=== PATIENT | female | born 1985 | race Caucasian/White ===

== ENCOUNTER 2016-05-22 23:53 | Inpatient (IN) | payer MEDICAID ==
[~2016-05-22] VITALS: Ht 154.9 cm; Wt 59.9 kg
[~2016-05-22 23:53] MED LIST: ACYCLOVIR400 MG PO; ADALAT CC60 MG PO; ATORVASTATIN CA10 MG ORAL; BACTRIM-DS1 EA PO; CEPHALEXIN500 MG PO; CLINDAMYCIN HC150 MG PO; IBUPROFEN600 MG ORAL; IBUPROFEN800 MG PO; KEFLEX500 MG ORAL; KENALOG 0.025%15 GM APPLIC; LABETALOL HCL300 MG PO; LEVAQUIN750 MG ORAL; LISINOPRIL10 MG ORAL; LISINOPRIL20 MG ORAL; NORCO 5-325 TA1 EACH ORAL; NORCO 5-325 TA1 EACH PO; PHENAZOPYRIDIN100 MG ORAL; PRILOSEC20 MG ORAL; ULTRAM50 MG PO; ZITHROMAX250 MG ORAL; [UNRECOGNIZED DRUG - REMARK]
[2016-05-23] VITALS (8 sets, daily range): BP systolic 112–135; BP diastolic 73–86
[2016-05-23] MEDS ORDERED: Ertapenem 1 GM in NS 55 ML IV ONE ×2 (01:15→03:45)
[2016-05-23 01:32] LABS: APPEARANCE,URINE CLEAR; KETONES,URINE NEGATIVE (NEGATIVE); LEUKOCYTE ESTERASE ,URINE NEGATIVE (NEGATIVE); MEAN CORPUSCULAR HEMOGLOBIN 28.7 PG (27.0-31.0); MEAN CORPUSCULAR VOLUME 84 FL (80-99); MEAN PLATELET VOLUME 6.1 FL (6.5-10.1); NITRITE,URINE NEGATIVE (NEGATIVE); PH,URINE 5 (4.5-8.0); PLATELET COUNT 209 K/UL (150-450); PROTEIN,URINE 3+ (NEGATIVE); RED BLOOD COUNT 3.29 M/UL (4.20-5.40); RED CELL DISTRIBUTION WIDTH 12.3 % (11.6-14.8); UROBILINOGEN,URINE NORMAL MG/DL (0.0-1.0); WHITE BLOOD COUNT 10.3 K/UL (4.8-10.8)
[2016-05-23 01:39] LABS: BACTERIA,URINE FEW /HPF; SQUAMOUS EPITHELIAL CELL,UR MODERATE /LPF (NONE/OCC)
[2016-05-23 01:45] LABS: ALANINE AMINOTRANSFERASE 20 U/L (3-33); ANION GAP 15 (5-15); ASPARTATE AMINO TRANSFERASE 30 U/L (5-40); CARBON DIOXIDE 21 mEQ/L (20-30); CHLORIDE 101 mEQ/L (98-107); GLOMERULAR FILTRATION RATE > 60 mL/min (>60); HEMOLYSIS 2; POTASSIUM 3.3 mEQ/L (3.4-4.9); SODIUM 137 mEQ/L (135-145); TOTAL PROTEIN 5.8 g/dL (6.6-8.7)
[2016-05-23] MEDS ORDERED: Levofloxacin 500mg tab ORAL ONE (02:45)
[2016-05-23] MEDS ORDERED: Acetaminophen 500mg (ES) tab ORAL ONE (02:45)
--- NOTE | 2016-05-23 02:45 | Emergency Room Report ---
History of Present Illness General Chief Complaint: Back Pain-No Injury Source: Patient Present Illness HPI This is a 30-year-old female with a history of urinary tract infection. 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 She has no kidney abnormality. She presents with chief complaint of fever chills and back pain. Onset yesterday. Denies any cough or congestion. Has mild sore throat. Does have mild increasing urination. No diarrhea. No abdominal pain. Allergies: Coded Allergies: PENICILLINS (Verified Allergy, Rash, 01/19/12) Patient History Past Medical History: see triage record, old chart reviewed Past Surgical History: other Pertinent Family History: none Social History: Denies: smoking Last Menstrual Period: Apr Now: No Immunizations: other Reviewed Nursing Documentation: PMH: Agreed, PSxH: Agreed Nursing Documentation-PMH Hx Hypertension: Yes Hx Pacemaker: No Hx Asthma: No Hx COPD: No Hx Diabetes: No Hx Cancer: No Hx Gastrointestinal Problems: Yes - KIDNEY BIOPSY Apr Hx Dialysis: No - UTI in 2001 Hx Neurological Problems: No Hx Cerebrovascular Accident: No Hx Seizures: No Review of Systems Constitutional: Reports: fever Eye: Denies: blurred vision, eye pain ENT: Denies: ear pain, nose congestion, throat swelling Respiratory: Denies: cough, shortness of breath Cardiovascular: Denies: chest pain, palpitations Gastrointestinal: Denies: abdominal pain, diarrhea, nausea, vomiting Musculoskeletal: Denies: back pain, joint pain Skin: Denies: rash Neurological: Denies: headache, numbness Endocrine: Denies: increased thirst, increased urine Hematologic/Lymphatic: Denies: easy bruising All Other Systems: negative except mentioned in HPI Physical Exam Vital Signs Date Time Temp Pulse Resp B/P Pulse Ox O2 Delivery O2 Flow Rate FiO2 05/23/16 00:30 100.0 128 20 132/80 100 Room Air vitals with fever and tachycardia Sp02 EP Interpretation: reviewed, normal General Appearance: well appearing, no apparent distress, alert Head: normocephalic, atraumatic Eyes: bilateral eye EOMI, bilateral eye PERRL ENT: hearing grossly normal, normal pharynx Neck: full range of motion, supple, no meningismus Respiratory: chest non-tender, lungs clear, normal breath sounds Cardiovascular #1: regular rate, rhythm, no murmur Gastrointestinal: normal bowel sounds, non tender, no mass, no organomegaly, no bruit, non-distended Musculoskeletal: back normal, gait/station normal, normal range of motion Psychiatric: mood/affect normal Skin: warm/dry Medical Decision Making Diagnostic Impression: Primary Impression: Fever Qualified Codes: R50.9 - Fever, unspecified Additional Impressions: Anemia Qualified Codes: D64.9 - Anemia, unspecified Proteinuria Sepsis Qualified Codes: A41.9 - Sepsis, unspecified organism UTI (urinary tract infection) Qualified Codes: N30.00 - Acute cystitis without hematuria ER Course Patient presents with fever and chills. Differential include sepsis, pneumonia , pyelonephritis, influenza to name a few. Urinalysis unremarkable she does have small amount of bacteria. Labs unremarkable. No evidence of pneumonia, acute abdomen, strep to name a few. CT scan unremarkable. She grew out ESBL Escherichia coli in the past. It is resistant to Keflex, cefepime, Rocephin, Ceftazidime, and Bactrim. it is sensitive to the fluoroquinolones, Invanz, gentamicin, imipenem, and Zosyn. She has allergy to penicillin. Unknown reaction. Was told by her mom that she is allergic. Is intermediate to Macrobid. Initially, gave patient Levaquin anticipating that she may be discharged home. I also held off on and sent because of her diagnosis of glomerulonephritis. Patient continued to be febrile and tachycardic despite Tylenol and IV fluids. I went ahead and gave patient a dose of Toradol. Also started on ertapenem. Because of the persistent fever and tachycardia and recent renal biopsy, I will admit the patient. She is unstable for transfer because of her tachycardia. Patient also has left-sided back pain. Her biopsy is on her left kidney.no obvious leonardo jam this or abscess collection on CT scan. Laboratory Tests Test 05/23/16 01:18 White Blood Count 10.3 K/UL (4.8-10.8) Red Blood Count 3.29 M/UL (4.20-5.40) L Hemoglobin 9.4 G/DL (12.0-16.0) L Hematocrit 27.7 % (37.0-47.0) L Mean Corpuscular Volume 84 FL (80-99) Mean Corpuscular Hemoglobin 28.7 PG (27.0-31.0) Mean Corpuscular Hemoglobin Concent 34.0 G/DL (32.0-36.0) Red Cell Distribution Width 12.3 % (11.6-14.8) Platelet Count 209 K/UL (150-450) Mean Platelet Volume 6.1 FL (6.5-10.1) L Neutrophils (%) (Auto) % (45.0-75.0) Lymphocytes (%) (Auto) % (20.0-45.0) Monocytes (%) (Auto) % (1.0-10.0) Eosinophils (%) (Auto) % (0.0-3.0) Basophils (%) (Auto) % (0.0-2.0) Urine Color Pale yellow Urine Appearance Clear Urine pH 5 (4.5-8.0) Urine Specific [place] 1.005 (1.005-1.035) Urine Protein 3+ (NEGATIVE) H Urine Glucose (UA) Negative (NEGATIVE) Urine Ketones Negative (NEGATIVE) Urine Occult Blood 5+ (NEGATIVE) H Urine Nitrite Negative (NEGATIVE) Urine Bilirubin Negative (NEGATIVE) Urine Urobilinogen Normal MG/DL (0.0-1.0) Urine Leukocyte Esterase Negative (NEGATIVE) Urine RBC 10-15 /HPF (0 - 2) H Urine WBC 2-4 /HPF (0 - 2) Urine Squamous Epithelial Cells Moderate /LPF (NONE/OCC) H Urine Bacteria Few /HPF (NONE) Urine HCG, Qualitative Negative Sodium Level 137 mEQ/L (135-145) Potassium Level 3.3 mEQ/L (3.4-4.9) L Chloride Level 101 mEQ/L (98-107) Carbon Dioxide Level 21 mEQ/L (20-30) Anion Gap 15 (5-15) Blood Urea Nitrogen 19 mg/dL (7-23) Creatinine 1.0 mg/dL (0.5-0.9) H Estimat Glomerular Filtration Rate > 60 mL/min (>60) Glucose Level 151 mg/dL (74-106) H Lactic Acid Level 1.10 mmol/L (0.66-2.22) Calcium Level 8.0 mg/dL (8.6-10.2) L Total Bilirubin 0.2 mg/dL (0.0-1.2) Aspartate Amino Transf (AST/SGOT) 30 U/L (5-40) Alanine Aminotransferase (ALT/SGPT) 20 U/L (3-33) Alkaline Phosphatase 94 U/L (35-104) Total Protein 5.8 g/dL (6.6-8.7) L Albumin 2.9 g/dL (3.5-5.2) L Globulin 2.9 g/dL Albumin/Globulin Ratio 1.0 (1.0-2.7) Lab Results Impression labs unremarkable EKG Diagnostic Results Rate: normal, tachycardiac Rhythm: NSR ST Segments: no acute changes Rhythm Strip Diag. Results EP Interpretation: yes Rate: 110 Rhythm: NSR, no PVC's, no ectopy Last Vital Signs Date Time Temp Pulse Resp B/P Pulse Ox O2 Delivery O2 Flow Rate FiO2 05/23/16 00:40 100.2 113 14 135/84 98 Room Air Status: improved Disposition: ADMITTED INPATIENT Condition: Serious Referrals: [facility],REFERR[facility] (PCP) GUILLERMINA PENA M.D. May 23, 2016 02:45
[2016-05-23] MEDS ORDERED: Ketorolac 30mg Inj IV ONE (03:45)
[2016-05-23] MEDS ORDERED: Ertapenem (INVanz) Inj ONE (03:46)
[2016-05-23] MEDS ORDERED: LISINOPRIL20 MG ORAL (06:02)
[2016-05-23] MEDS ORDERED: Nitroglycerin Subl 0.4mg tab (Bottle Of 25) SL PRN (08:30)
[2016-05-23] MEDS ORDERED: Morphine Sulfate 2mg/ml Inj IVP PRN (08:30)
[2016-05-23] MEDS ORDERED: DuoNeb 0.5-3(2.5)mg/3ml neb HHN PRN (08:30)
[2016-05-23] MEDS ORDERED: Miralax 17gm pkt ORAL PRN (08:30)
--- NOTE | 2016-05-23 09:34 | Diagnostic Imaging Report ---
Indication: Abdominal pain Technique: Continuous helical transaxial imaging of the abdomen and pelvis was obtained from the lung bases to the pubic symphysis. No intravenous contrast was administered. Coronal 2-D reformats were also obtained. Total Dose length Product (DLP): [address] Dose Index Volume (CTDIvol): 14 mGy Comparison: none Findings: There is posterior basilar atelectasis present. Urinary bladder is mildly distended. There is an intrauterine device present. There is no hydronephrosis or nephrolithiasis demonstrated. Gallbladder is contracted. The left ovary is prominent. There is a suggestion of a low-density mass or cyst in the left ovary not well characterized on this examination. Small mesenteric nodes are seen in the right lower quadrant. Appendix is normal in appearance. Impression: Suggestion of left ovarian mass versus cyst. This is not characterized well on this examination. IUD Small focal hernia containing fat Posterior basilar atelectasis [facility] has communicated the preliminary results to the Emergency Department. Their findings are largely concordant with this report. The CT scanner at [facility] is accredited by the [employer] and the scans are performed using protocols designed to limit radiation exposure to as low as reasonably achievable to attain images of sufficient resolution adequate for diagnostic evaluation.
[2016-05-23] MEDS: Norco 5mg/325mg tab ORAL PRN ×2 (10:37→17:33)
[2016-05-23] MEDS: Heparin 5000 units/ml inj SUBQ SCH ×2 (10:41→21:00)
[2016-05-23] MEDS: Cefepime HCl 2 GM in D5W 110 ML IV SCH ×2 (11:13→21:29)
[2016-05-23] MEDS ORDERED: Vancomycin 1 GM in D5W 275 ML IVPB ONE (12:00)
--- NOTE | 2016-05-23 12:11 | Diagnostic Imaging Report ---
Indication: Dyspnea Comparison: 08/31/15 A single view chest radiograph was obtained. Findings: Cardiomediastinal appearance is within normal limits for age. Pulmonary vascularity is appropriate. The diaphragmatic contour is smooth and costophrenic angles are sharp. No pleural effusions are identified. The bones are unremarkable. Impression: No acute findings
[2016-05-23] MEDS: Lisinopril 20mg tab ORAL SCH ×2 (12:20→21:29)
[2016-05-23 17:09] LABS: INR 1.1 (0.9-1.1); PROTHROMBIN TIME 11.5 SEC (9.30-11.50)
[2016-05-23 17:48] LABS: RETICULOCYTE COUNT 1.2 % (0.0-2.0)
[2016-05-23 18:08] LABS: BAND NEUTROPHILS % (MANUAL) 9 % (0-8); LYMPHOCYTES % (MANUAL) 11 % (20-45); NEUTROPHILS % (MANUAL) 63 % (45-75); TOTAL CELLS COUNTED 100
[2016-05-23 18:10] LABS: BASOPHILS % (MANUAL) 0 % (0-2); EOSINOPHILS % (MANUAL) 0 % (0-3); PLATELET ESTIMATE ADEQUATE; PLATELET MORPHOLOGY NORMAL
[2016-05-23 18:23] LABS: PATH BLOOD SMEAR/OMC SENT TO PATHOLOGIST
--- NOTE | 2016-05-23 21:43 | History and Physical ---
History of Present Illness General Date patient seen: May 23, 2016 Reason for Hospitalization: Back Pain-No Injury possible kidney disease Present Illness HPI Patient is a 31-year-old female with a history of urinary tract infection with E. 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 She has no kidney abnormality. She presents with chief complaint of fever chills and back pain. Denies all other significant past medical history. Denies alcohol and illicit substance abuse, cannot recall any recent occupation exposures to chemicals or toxins and also denies taking nephrotoxic agents. Patient is being admitted and pharmaceutical worker has been requested to evaluate her serious medical condition. Allergies: Coded Allergies: PENICILLINS (Verified Allergy, Unknown, Rash, 05/24/16) 05/24/16: tolerates cefepime/ceftriaxone Medication History Scheduled Atorvastatin Calcium* (Lipitor*), 10 MG ORAL BEDTIME, (Reported) Hydrocodone Bit/Acetaminophen 5-325* ([place] 5-325*), 1 TAB PO Q6H Labetalol Hcl* (Normodyne*), 400 MG PO Q12H, (Reported) Lisinopril (Lisinopril*), 20 MG ORAL BID, (Reported) Nifedipine Er* (Adalat Cc*), 60 MG PO DAILY Miscellaneous Medications [High choles pill], (Reported) Patient History Healthcare decision maker pt alert and oriented Resuscitation status Full Code Advanced Directive on File Past Medical/Surgical History Past Medical/Surgical History: (1) chest pain (2) hypertension - out of control (3) medication non-compliance (4) Upper respiratory infection (5) Viral syndrome (6) Upper respiratory infection (7) Headache (8) Chest wall pain (9) Dental abscess (10) Dysfunctional uterine bleeding (11) UTI (urinary tract infection) Review of Systems Constitutional: Reports: fever, malaise, sweats, weakness Genitourinary: Reports: dysuria, frequency, hematuria, pain, urgency Neurological: Reports: headache Physical Exam General Appearance: no apparent distress, lethargic Lines, tubes and drains: peripheral HEENT: normocephalic, atraumatic, anicteric, PERRL Neck: non-tender, normal alignment, supple, normal inspection Respiratory/Chest: chest wall non-tender, lungs clear, normal breath sounds, no respiratory distress Breasts: no masses Cardiovascular/Chest: normal peripheral pulses, normal rate, regular rhythm Abdomen: normal bowel sounds, non tender, soft, no organomegaly Genitourinary/Rectal: normal genital exam, normal rectal exam Extremities: normal range of motion, non-tender Skin Exam: normal pigmentation, warm/dry Neurologic: tire duster II-XII grossly normal, no motor/sensory deficits Last 24 Hour Vital Signs Date Time Temp Pulse Resp B/P Pulse Ox O2 Delivery O2 Flow Rate FiO2 05/23/16 21:29 126/75 05/23/16 20:14 108 18 Room Air 21 05/23/16 18:32 97.9 05/23/16 12:20 126/75 05/23/16 12:00 120 05/23/16 11:22 97.9 100 17 126/75 100 Room Air 05/23/16 08:00 118 05/23/16 07:36 98.8 122 18 118/76 98 Room Air 05/23/16 06:30 98.4 118 18 112/76 99 Room Air 05/23/16 06:14 126 21 117/78 100 Room Air 05/23/16 04:40 99.4 117 21 117/78 99 Room Air 05/23/16 03:42 100.9 05/23/16 02:40 100.9 120 16 123/86 100 Room Air 05/23/16 00:40 100.2 113 14 135/84 98 Room Air 05/23/16 00:30 100.0 128 20 132/80 100 Room Air Intake and Output 05/22/16 05/23/16 19:00 07:00 Intake Total 2850 ml Balance 2850 ml IV Total 2850 ml # Voids 2 Laboratory Tests Test 05/23/16 01:18 05/23/16 16:10 White Blood Count 10.3 K/UL (4.8-10.8) Red Blood Count 3.29 M/UL (4.20-5.40) L Hemoglobin 9.4 G/DL (12.0-16.0) L Hematocrit 27.7 % (37.0-47.0) L Mean Corpuscular Volume 84 FL (80-99) Mean Corpuscular Hemoglobin 28.7 PG (27.0-31.0) Mean Corpuscular Hemoglobin Concent 34.0 G/DL (32.0-36.0) Red Cell Distribution Width 12.3 % (11.6-14.8) Platelet Count 209 K/UL (150-450) Mean Platelet Volume 6.1 FL (6.5-10.1) L Neutrophils (%) (Auto) % (45.0-75.0) Lymphocytes (%) (Auto) % (20.0-45.0) Monocytes (%) (Auto) % (1.0-10.0) Eosinophils (%) (Auto) % (0.0-3.0) Basophils (%) (Auto) % (0.0-2.0) Differential Total Cells Counted 100 Neutrophils % (Manual) 63 % (45-75) Lymphocytes % (Manual) 11 % (20-45) L Monocytes % (Manual) 17 % (1-10) H Eosinophils % (Manual) 0 % (0-3) Basophils % (Manual) 0 % (0-2) Band Neutrophils 9 % (0-8) H Platelet Estimate Adequate Platelet Morphology Normal Red Blood Cell Morphology Normal Anisocytosis Urine Color Pale yellow Urine Appearance Clear Urine pH 5 (4.5-8.0) Urine Specific [place] 1.005 (1.005-1.035) Urine Protein 3+ (NEGATIVE) H Urine Glucose (UA) Negative (NEGATIVE) Urine Ketones Negative (NEGATIVE) Urine Occult Blood 5+ (NEGATIVE) H Urine Nitrite Negative (NEGATIVE) Urine Bilirubin Negative (NEGATIVE) Urine Urobilinogen Normal MG/DL (0.0-1.0) Urine Leukocyte Esterase Negative (NEGATIVE) Urine RBC 10-15 /HPF (0 - 2) H Urine WBC 2-4 /HPF (0 - 2) Urine Squamous Epithelial Cells Moderate /LPF (NONE/OCC) H Urine Bacteria Few /HPF (NONE) Urine HCG, Qualitative Negative Sodium Level 137 mEQ/L (135-145) Potassium Level 3.3 mEQ/L (3.4-4.9) L Chloride Level 101 mEQ/L (98-107) Carbon Dioxide Level 21 mEQ/L (20-30) Anion Gap 15 (5-15) Blood Urea Nitrogen 19 mg/dL (7-23) Creatinine 1.0 mg/dL (0.5-0.9) H Estimat Glomerular Filtration Rate > 60 mL/min (>60) Glucose Level 151 mg/dL (74-106) H Lactic Acid Level 1.10 mmol/L (0.66-2.22) Calcium Level 8.0 mg/dL (8.6-10.2) L Total Bilirubin 0.2 mg/dL (0.0-1.2) Aspartate Amino Transf (AST/SGOT) 30 U/L (5-40) Alanine Aminotransferase (ALT/SGPT) 20 U/L (3-33) Alkaline Phosphatase 94 U/L (35-104) Total Protein 5.8 g/dL (6.6-8.7) L Albumin 2.9 g/dL (3.5-5.2) L Globulin 2.9 g/dL Albumin/Globulin Ratio 1.0 (1.0-2.7) Erythrocyte Sedimentation Rate 77 MM/HR (0-20) H Reticulocyte Count 1.2 % (0.0-2.0) Prothrombin Time 11.5 SEC (9.30-11.50) Prothromb Time International Ratio 1.1 (0.9-1.1) Activated Partial Thromboplast Time 32 SEC (23-33) Iron Level 13 ug/dL (37-145) L Total Iron Binding Capacity 262 ug/dL (250-400) Percent Iron Saturation 5 % (15-50) L Unsaturated Iron Binding 249 ug/dL (112-346) Lactate Dehydrogenase 214 U/L (135-230) Carcinoembryonic Antigen 0.5 ng/mL Vitamin B12 Level 533 pg/mL (211-946) Folate Pending Microbiology Date/Time Source Procedure Growth Status 05/23/16 03:31 Nasal Nares Influenza Types A,B Antigen (DWAYNE) - Final Complete Height (Feet): 5 Height (Inches): 2.00 Weight (Pounds): 132 Medications Current Medications Medications (Trade) Dose Ordered Sig/Jolene Route PRN Reason Start Time Stop Time Status Last Admin Dose Admin Acetaminophen (Tylenol) 650 mg Q4H PRN ORAL fever 05/23/16 08:30 06/22/16 08:29 Acetaminophen/ Hydrocodone Bitart ([place] 5/325) 1 tab Q6H PRN ORAL Breakthrough Pain 05/23/16 08:30 05/30/16 08:29 05/23/16 17:33 Albuterol/ Ipratropium 3 ml 3 ml Q4H PRN HHN Shortness of Breath 05/23/16 08:30 05/28/16 08:29 Atorvastatin Calcium (Lipitor) 10 mg BEDTIME ORAL 05/23/16 21:00 06/22/16 20:59 05/23/16 21:29 Cefepime HCl/ Dextrose (Maxipime/D5W) 110 ml @ 220 mls/hr EVERY 12 HOURS IV 05/23/16 11:00 05/30/16 10:59 05/23/16 21:29 Heparin Sodium (Porcine) (Heparin 5000 units/ml) 5,000 units EVERY 12 HOURS SUBQ 05/23/16 09:00 06/22/16 08:59 05/23/16 10:41 Lisinopril (Prinivil) 20 mg Q12HR ORAL 05/23/16 12:00 06/22/16 11:59 05/23/16 21:29 Morphine Sulfate (Morphine Sulfate) 2 mg Q4H PRN IVP Moderate Pain (Pain Scale 4-6) 05/23/16 08:30 05/30/16 08:29 Nitroglycerin (Ntg) 0.4 mg Q5M PRN SL Prn Chest Pain 05/23/16 08:30 06/22/16 08:29 Ondansetron HCl (Zofran) 4 mg Q6H PRN IVP Nausea & Vomiting 05/23/16 08:30 06/22/16 08:29 Polyethylene Glycol (Miralax) 17 gm DAILYPRN PRN ORAL Constipation 05/23/16 08:30 06/22/16 08:29 Temazepam (Restoril) 15 mg HSPRN PRN ORAL Insomnia 05/23/16 08:30 05/30/16 08:29 Vancomycin HCl 1 ea 1 ea DAILY PRN MISC PER RX PROTOCOL 05/23/16 09:30 06/22/16 09:29 Vancomycin HCl/ Dextrose (Vancomycin/D5W) 275 ml @ 183.708 mls/hr Q12HR@0000,1200 IVPB 05/24/16 00:00 05/29/16 00:00 Assessment/Plan Status: stable, tolerating diet ANAI SANCHEZ May 23, 2016 21:43
[2016-05-23 23:23] LABS: APPEARANCE,URINE CLEAR; KETONES,URINE NEGATIVE (NEGATIVE); LEUKOCYTE ESTERASE ,URINE 1+ (NEGATIVE); NITRITE,URINE NEGATIVE (NEGATIVE); PH,URINE 5 (4.5-8.0); PROTEIN,URINE 4+ (NEGATIVE); UROBILINOGEN,URINE NORMAL MG/DL (0.0-1.0)
--- NOTE | 2016-05-23 23:45 | Consultation ---
Consult Note Consult Note [id number] CESIA AMBRIZ M.D. May 23, 2016 23:45
[2016-05-24 00:01] LABS: AMORPHOUS SEDIMENT,UR FEW /LPF; BACTERIA,URINE MODERATE /HPF; COARSE GRANULAR CASTS,URINE 0-2 /LPF; RBC,URINE 60-80 /HPF (0 - 2); SQUAMOUS EPITHELIAL CELL,UR MANY /LPF (NONE/OCC); WHITE BLOOD CELL CASTS, URINE 0-2 /LPF
[2016-05-24 00:31] VITALS: BP 111/77
[2016-05-24] MEDS: Vancomycin 750mg/D5W 275ml IVPB SCH ×4 (00:33→12:23)
--- NOTE | 2016-05-24 03:08 | Consultation ---
DATE OF CONSULTATION: INFECTIOUS DISEASE CONSULTATION CONSULTING PHYSICIAN: Timoteo Awad M.D. REQUESTING PHYSICIAN: Teresa Tovar M.D. REASON FOR CONSULTATION: Evaluation of the patient for severe lower urinary tract infection and antibiotic management. HISTORY OF PRESENT ILLNESS: The patient is a 30-year-old female, who was admitted to this medical center due to frequent urination and dysuria. The patient has been started on IV antibiotics. An Infectious Disease consultation has been requested for further evaluation of the patient and antibiotic management. PAST MEDICAL HISTORY: Significant for hypertension, nephritis. MEDICATIONS: Intravenous vancomycin and cefepime. ALLERGIES: Penicillin. SOCIAL HISTORY: No history of alcohol or drug abuse. FAMILY HISTORY: Noncontributory. REVIEW OF SYSTEMS: A 10-point review was done and except what is mentioned has been negative. PHYSICAL EXAMINATION: VITAL SIGNS: Temperature 97.8 degrees, blood pressure 116/68, pulse 86, respiratory rate 18, and T-max 100.9 degrees. HEENT: Mild pale conjunctivae. No icterus. NECK: No lymphadenopathy. CHEST: Coarse breathing sounds. HEART: S1 and S2. ABDOMEN: Soft. EXTREMITIES: No cyanosis. NEUROLOGIC: Awake. LABORATORY AND DIAGNOSTIC DATA: White blood cell 10, hemoglobin 9.4, and platelets 209,000. UA showed 10 to 15 white blood cells, 2 to 4 red blood cells, and proteinuria. BUN 19 and creatinine . AST, ALT, and alkaline phosphatase are within normal range. Chest x-ray is unremarkable. CT scan of the abdomen suggest left ovarian mass versus cyst. ASSESSMENT: The patient is a 30-year-old female with multiple medical problems, who has been admitted to this medical center with fever, source is not clear, possible urinary tract infection with history of dysuria. PLAN: 1. We will continue the patient on current antibiotics, vancomycin and cefepime. 2. Monitor counts. 3. Monitor CBC. 4. Monitor BMP. 5. Based on the patient's clinical course and labs, we will do further recommendations. Thank you Dr. Tovar for allowing me to participate in the care of this patient. I will follow the patient with you during this hospitalization. Timoteo Awad M.D. DR: CARLIN JOB#: [id number] CC:
[2016-05-24 04:10] VITALS: BP 113/78
[2016-05-24 08:11] VITALS: BP 132/91
[2016-05-24 08:24] LABS: BASOPHILS % (AUTO) 2.4 % (0.0-2.0); EOSINOPHILS % (AUTO) 0.3 % (0.0-3.0); LYMPHOCYTES % (AUTO) 13.4 % (20.0-45.0); MEAN CORPUSCULAR HEMOGLOBIN 28.9 PG (27.0-31.0); MEAN CORPUSCULAR HGB CONC 34.1 G/DL (32.0-36.0); MEAN CORPUSCULAR VOLUME 85 FL (80-99); MONOCYTES % (AUTO) 18.9 % (1.0-10.0); NEUTROPHILS % (AUTO) 65.1 % (45.0-75.0); PLATELET COUNT 190 K/UL (150-450); RED BLOOD COUNT 2.98 M/UL (4.20-5.40); RED CELL DISTRIBUTION WIDTH 12.3 % (11.6-14.8); WHITE BLOOD COUNT 10.4 K/UL (4.8-10.8)
[2016-05-24 08:46] LABS: ALANINE AMINOTRANSFERASE 18 U/L (3-33); ALBUMIN/GLOBULIN RATIO 0.8 (1.0-2.7); ANION GAP 16 (5-15); ASPARTATE AMINO TRANSFERASE 17 U/L (5-40); CALCIUM 7.9 mg/dL (8.6-10.2); CARBON DIOXIDE 21 mEQ/L (20-30); CHLORIDE 100 mEQ/L (98-107); CREATININE 0.8 mg/dL (0.5-0.9); GLOMERULAR FILTRATION RATE > 60 mL/min (>60); HEMOLYSIS 2; POTASSIUM 3.3 mEQ/L (3.4-4.9); SODIUM 137 mEQ/L (135-145); TOTAL PROTEIN 4.9 g/dL (6.6-8.7)
[2016-05-24] MEDS: Norco 5mg/325mg tab ORAL PRN (08:56)
[2016-05-24] MEDS: Lisinopril 20mg tab ORAL SCH ×2 (08:57→20:24)
[2016-05-24] MEDS: Heparin 5000 units/ml inj SUBQ SCH ×3 (08:59→20:25)
[2016-05-24] MEDS: Cefepime HCl 2 GM in D5W 110 ML IV SCH (09:03)
--- NOTE | 2016-05-24 11:03 | Infectious Diseases Prog Note ---
Assessment/Plan Assessment/Plan A: ; The patient is a 30-year-old female Diarrhea improving Probable UTI ? SP dysuria HTN GlomNephritis CT scan of the abdomen suggest left ovarian mass versus cyst. PLAN: will continue the patient on cefepime d# 2 / 5 upon DC will change to Levaquin to complete the course , DC vancomycin Monitor CBC Monitor Cultures Monitor BMP . Subjective Constitutional: Denies: anorexia, chills, drenching sweats, fatigue, fever, no symptoms, other Allergies: Coded Allergies: PENICILLINS (Verified Allergy, Rash, 01/19/12) Subjective diarrhea is improving Objective Vital Signs Last 24 Hour Vital Signs Date Time Temp Pulse Resp B/P Pulse Ox O2 Delivery O2 Flow Rate FiO2 05/24/16 08:11 98.8 89 18 132/91 100 Room Air 05/24/16 04:10 98.2 104 20 113/78 99 Room Air 05/24/16 04:00 94 05/24/16 00:31 98.6 104 20 111/77 96 Room Air 05/24/16 00:00 102 05/23/16 21:29 126/75 05/23/16 20:14 108 18 Room Air 21 05/23/16 20:00 98.2 100 18 116/78 100 Room Air 05/23/16 20:00 120 05/23/16 18:32 97.9 05/23/16 16:00 97.9 100 17 125/73 100 Room Air 05/23/16 12:20 126/75 05/23/16 12:00 120 05/23/16 11:22 97.9 100 17 126/75 100 Room Air Height (Feet): 5 Height (Inches): 2.00 Weight (Pounds): 132 HEENT: anicteric Respiratory/Chest: normal breath sounds Cardiovascular: regular rhythm Abdomen: soft, non tender Microbiology Date/Time Source Procedure Growth Status 05/23/16 01:18 Blood Blood Culture - Preliminary NO GROWTH AFTER 24 HOURS Resulted 05/23/16 01:00 Blood Blood Culture - Preliminary NO GROWTH AFTER 24 HOURS Resulted 05/23/16 03:31 Nasal Nares Influenza Types A,B Antigen (DWAYNE) - Final Complete Laboratory Tests Test 05/23/16 16:00 05/23/16 16:10 05/23/16 21:00 3/7/17 06:50 Stool Occult Blood Pending Erythrocyte Sedimentation Rate 77 MM/HR (0-20) H Reticulocyte Count 1.2 % (0.0-2.0) Prothrombin Time 11.5 SEC (9.30-11.50) Prothromb Time International Ratio 1.1 (0.9-1.1) Activated Partial Thromboplast Time 32 SEC (23-33) Iron Level 13 ug/dL (37-145) L Total Iron Binding Capacity 262 ug/dL (250-400) Percent Iron Saturation 5 % (15-50) L Unsaturated Iron Binding 249 ug/dL (112-346) Lactate Dehydrogenase 214 U/L (135-230) Carcinoembryonic Antigen 0.5 ng/mL Vitamin B12 Level 533 pg/mL (211-946) Folate Pending Urine Color Pale yellow Urine Appearance Clear Urine pH 5 (4.5-8.0) Urine Specific [place] 1.010 (1.005-1.035) Urine Protein 4+ (NEGATIVE) H Urine Glucose (UA) Negative (NEGATIVE) Urine Ketones Negative (NEGATIVE) Urine Occult Blood 5+ (NEGATIVE) H Urine Nitrite Negative (NEGATIVE) Urine Bilirubin Negative (NEGATIVE) Urine Urobilinogen Normal MG/DL (0.0-1.0) Urine Leukocyte Esterase 1+ (NEGATIVE) H Urine RBC 60-80 /HPF (0 - 2) H Urine WBC 10-15 /HPF (0 - 2) H Urine Squamous Epithelial Cells Many /LPF (NONE/OCC) H Urine Amorphous Sediment Few /LPF (NONE) H Urine Bacteria Moderate /HPF (NONE) H Urine Coarse Granular Casts 0-2 /LPF (NONE) H Urine White Blood Cell Casts 0-2 /LPF (NONE) H White Blood Count 10.4 K/UL (4.8-10.8) Red Blood Count 2.98 M/UL (4.20-5.40) L Hemoglobin 8.6 G/DL (12.0-16.0) L Hematocrit 25.2 % (37.0-47.0) L Mean Corpuscular Volume 85 FL (80-99) Mean Corpuscular Hemoglobin 28.9 PG (27.0-31.0) Mean Corpuscular Hemoglobin Concent 34.1 G/DL (32.0-36.0) Red Cell Distribution Width 12.3 % (11.6-14.8) Platelet Count 190 K/UL (150-450) Mean Platelet Volume 6.0 FL (6.5-10.1) L Neutrophils (%) (Auto) 65.1 % (45.0-75.0) Lymphocytes (%) (Auto) 13.4 % (20.0-45.0) L Monocytes (%) (Auto) 18.9 % (1.0-10.0) H Eosinophils (%) (Auto) 0.3 % (0.0-3.0) Basophils (%) (Auto) 2.4 % (0.0-2.0) H Sodium Level 137 mEQ/L (135-145) Potassium Level 3.3 mEQ/L (3.4-4.9) L Chloride Level 100 mEQ/L (98-107) Carbon Dioxide Level 21 mEQ/L (20-30) Anion Gap 16 (5-15) H Blood Urea Nitrogen 10 mg/dL (7-23) Creatinine 0.8 mg/dL (0.5-0.9) Estimat Glomerular Filtration Rate > 60 mL/min (>60) Glucose Level 99 mg/dL (74-106) Calcium Level 7.9 mg/dL (8.6-10.2) L Total Bilirubin < 0.2 mg/dL (0.0-1.2) Aspartate Amino Transf (AST/SGOT) 17 U/L (5-40) Alanine Aminotransferase (ALT/SGPT) 18 U/L (3-33) Alkaline Phosphatase 87 U/L (35-104) Total Protein 4.9 g/dL (6.6-8.7) L Albumin 2.3 g/dL (3.5-5.2) L Globulin 2.6 g/dL Albumin/Globulin Ratio 0.8 (1.0-2.7) L Current Medications Medications (Trade) Dose Ordered Sig/Jolene Route PRN Reason Start Time Stop Time Status Last Admin Dose Admin Acetaminophen (Tylenol) 650 mg Q4H PRN ORAL fever 05/23/16 08:30 06/22/16 08:29 Acetaminophen/ Hydrocodone Bitart ([place] 5/325) 1 tab Q6H PRN ORAL Breakthrough Pain 05/23/16 08:30 05/30/16 08:29 05/24/16 08:56 Albuterol/ Ipratropium 3 ml 3 ml Q4H PRN HHN Shortness of Breath 05/23/16 08:30 05/28/16 08:29 Atorvastatin Calcium (Lipitor) 10 mg BEDTIME ORAL 05/23/16 21:00 06/22/16 20:59 05/23/16 21:29 Cefepime HCl/ Dextrose (Maxipime/D5W) 110 ml @ 220 mls/hr EVERY 12 HOURS IV 05/23/16 11:00 05/30/16 10:59 05/24/16 09:03 Heparin Sodium (Porcine) (Heparin 5000 units/ml) 5,000 units EVERY 12 HOURS SUBQ 05/23/16 09:00 06/22/16 08:59 05/23/16 10:41 Lisinopril (Prinivil) 20 mg Q12HR ORAL 05/23/16 12:00 06/22/16 11:59 05/24/16 08:57 Morphine Sulfate (Morphine Sulfate) 2 mg Q4H PRN IVP Moderate Pain (Pain Scale 4-6) 05/23/16 08:30 05/30/16 08:29 Nitroglycerin (Ntg) 0.4 mg Q5M PRN SL Prn Chest Pain 05/23/16 08:30 06/22/16 08:29 Ondansetron HCl (Zofran) 4 mg Q6H PRN IVP Nausea & Vomiting 05/23/16 08:30 06/22/16 08:29 Polyethylene Glycol (Miralax) 17 gm DAILYPRN PRN ORAL Constipation 05/23/16 08:30 06/22/16 08:29 Temazepam (Restoril) 15 mg HSPRN PRN ORAL Insomnia 05/23/16 08:30 05/30/16 08:29 Vancomycin HCl 1 ea 1 ea DAILY PRN MISC PER RX PROTOCOL 05/23/16 09:30 06/22/16 09:29 Vancomycin HCl/ Dextrose (Vancomycin/D5W) 275 ml @ 183.708 mls/hr Q12HR@0000,1200 IVPB 05/24/16 00:00 05/29/16 00:00 05/24/16 00:33 CESIA AMBRIZ M.D. May 24, 2016 11:03
[2016-05-24 11:31] VITALS: BP 142/95
[2016-05-24 16:00] VITALS: BP 133/89
[2016-05-24] MEDS ORDERED: Tubing IV Secondary IV ONE (17:57)
[2016-05-24] MEDS ORDERED: NS 275ml ONE (17:57)
[2016-05-24 20:00] VITALS: BP 133/85
[2016-05-24] MEDS ORDERED: Cefepime HCl 1 GM in D5W 55 ML IVPB SCH (21:00)
--- NOTE | 2016-05-24 22:07 | Pulmonology Progress Note ---
Assessment/Plan Problems: (1) Sepsis (2) UTI (urinary tract infection) (3) Anemia Assessment/Plan IV antibiotics check cultures dc in one or two days. Subjective ROS Limited/Unobtainable: No Allergies: Coded Allergies: PENICILLINS (Verified Allergy, Unknown, Rash, 05/24/16) 05/24/16: tolerates cefepime/ceftriaxone Objective Last 24 Hour Vital Signs Date Time Temp Pulse Resp B/P Pulse Ox O2 Delivery O2 Flow Rate FiO2 05/24/16 20:24 133/89 05/24/16 20:00 98.8 91 20 133/85 99 Room Air 05/24/16 19:30 92 20 Room Air 21 05/24/16 16:00 98.1 85 20 133/89 99 Room Air 05/24/16 12:00 88 05/24/16 11:31 97.5 81 18 142/95 100 Room Air 05/24/16 11:03 97 18 Room Air 21 05/24/16 09:55 97.5 05/24/16 08:11 98.8 89 18 132/91 100 Room Air 05/24/16 08:00 100 05/24/16 04:10 98.2 104 20 113/78 99 Room Air 05/24/16 04:00 94 05/24/16 00:31 98.6 104 20 111/77 96 Room Air 05/24/16 00:00 102 Intake and Output 05/23/16 05/24/16 19:00 07:00 Intake Total 1825.0 ml 895.000 ml Balance 1825.0 ml 895.000 ml Intake Oral 1440 ml 620 ml IV Total 385.0 ml 275.000 ml # Voids 8 3 # Bowel Movements 10 General Appearance: WD/WN HEENT: normocephalic, atraumatic Respiratory/Chest: chest wall non-tender, lungs clear Cardiovascular: normal peripheral pulses, normal rate Abdomen: normal bowel sounds, soft, non tender Extremities: no cyanosis, no clubbing 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 Microbiology Date/Time Source Procedure Growth Status 05/23/16 01:18 Blood Blood Culture - Preliminary NO GROWTH AFTER 24 HOURS Resulted 05/23/16 01:00 Blood Blood Culture - Preliminary NO GROWTH AFTER 24 HOURS Resulted 05/23/16 03:31 Nasal Nares Influenza Types A,B Antigen (DWAYNE) - Final Complete Laboratory Tests 05/24/16 06:50: White Blood Count 10.4, Red Blood Count 2.98L, Hemoglobin 8.6L, Hematocrit 25.2L , Mean Corpuscular Volume 85, Mean Corpuscular Hemoglobin 28.9, Mean Corpuscular Hemoglobin Concent 34.1, Red Cell Distribution Width 12.3, Platelet Count 190, Mean Platelet Volume 6.0L, Neutrophils (%) (Auto) 65.1, Lymphocytes ( %) (Auto) 13.4L, Monocytes (%) (Auto) 18.9H, Eosinophils (%) (Auto) 0.3, Basophils (%) (Auto) 2.4H, Sodium Level 137, Potassium Level 3.3L, Chloride Level 100, Carbon Dioxide Level 21, Anion Gap 16H, Blood Urea Nitrogen 10, Creatinine 0.8, Estimat Glomerular Filtration Rate > 60, Glucose Level 99, Calcium Level 7.9L, Total Bilirubin < 0.2, Aspartate Amino Transf (AST/SGOT) 17 , Alanine Aminotransferase (ALT/SGPT) 18, Alkaline Phosphatase 87, Total Protein 4.9L, Albumin 2.3L, Globulin 2.6, Albumin/Globulin Ratio 0.8L Current Medications Medications (Trade) Dose Ordered Sig/Jolene Route PRN Reason Start Time Stop Time Status Last Admin Dose Admin Acetaminophen (Tylenol) 650 mg Q4H PRN ORAL fever 05/23/16 08:30 06/22/16 08:29 05/24/16 20:24 Acetaminophen/ Hydrocodone Bitart ([place] 5/325) 1 tab Q6H PRN ORAL Breakthrough Pain 05/23/16 08:30 05/30/16 08:29 05/24/16 08:56 Albuterol/ Ipratropium (DuoNeb 0.5-3(2.5)mg/3ml) 3 ml Q4H PRN HHN Shortness of Breath 05/23/16 08:30 05/28/16 08:29 Atorvastatin Calcium (Lipitor) 10 mg BEDTIME ORAL 05/23/16 21:00 06/22/16 20:59 05/24/16 20:23 Cefepime HCl/ Dextrose (Maxipime/D5W) 55 ml @ 110 mls/hr EVERY 12 HOURS IVPB 05/24/16 21:00 05/27/16 20:59 05/24/16 20:23 Heparin Sodium (Porcine) (Heparin 5000 units/ml) 5,000 units EVERY 12 HOURS SUBQ 05/23/16 09:00 06/22/16 08:59 05/23/16 10:41 Lisinopril (Prinivil) 20 mg Q12HR ORAL 05/23/16 12:00 06/22/16 11:59 05/24/16 20:24 Morphine Sulfate (Morphine Sulfate) 2 mg Q4H PRN IVP Moderate Pain (Pain Scale 4-6) 05/23/16 08:30 05/30/16 08:29 Nitroglycerin 0.4 mg 0.4 mg Q5M PRN SL Prn Chest Pain 05/23/16 08:30 06/22/16 08:29 Ondansetron HCl (Zofran) 4 mg Q6H PRN IVP Nausea & Vomiting 05/23/16 08:30 06/22/16 08:29 Polyethylene Glycol (Miralax) 17 gm DAILYPRN PRN ORAL Constipation 05/23/16 08:30 06/22/16 08:29 Temazepam (Restoril) 15 mg HSPRN PRN ORAL Insomnia 05/23/16 08:30 05/30/16 08:29 ANAI SANCHEZ May 24, 2016 22:07
[2016-05-24] MEDS ORDERED: Nitroglycerin Subl 0.4mg tab (Bottle Of 25) SL PRN (22:30)
[2016-05-25] VITALS: BP 121/76
[2016-05-25] MEDS ORDERED: DuoNeb 0.5-3(2.5)mg/3ml neb HHN PRN (00:30)
[2016-05-25] MEDS ORDERED: Morphine Sulfate 2mg/ml Inj IVP PRN (00:30)
[2016-05-25] MEDS ORDERED: Norco 5mg/325mg tab ORAL PRN (02:30)
[2016-05-25 04:00] VITALS: BP 121/78
[2016-05-25 07:39] LABS: BASOPHILS % (AUTO) 2.3 % (0.0-2.0); EOSINOPHILS % (AUTO) 2.5 % (0.0-3.0); LYMPHOCYTES % (AUTO) 22.2 % (20.0-45.0); MEAN CORPUSCULAR HEMOGLOBIN 28.7 PG (27.0-31.0); MEAN CORPUSCULAR HGB CONC 33.8 G/DL (32.0-36.0); MEAN CORPUSCULAR VOLUME 85 FL (80-99); MEAN PLATELET VOLUME 5.7 FL (6.5-10.1); MONOCYTES % (AUTO) 18.7 % (1.0-10.0); NEUTROPHILS % (AUTO) 54.3 % (45.0-75.0); PLATELET COUNT 219 K/UL (150-450); RED BLOOD COUNT 3.03 M/UL (4.20-5.40); RED CELL DISTRIBUTION WIDTH 12.2 % (11.6-14.8); WHITE BLOOD COUNT 8.3 K/UL (4.8-10.8)
[2016-05-25 07:48] LABS: ALANINE AMINOTRANSFERASE 16 U/L (3-33); ALBUMIN/GLOBULIN RATIO 0.9 (1.0-2.7); ANION GAP 12 (5-15); ASPARTATE AMINO TRANSFERASE 16 U/L (5-40); CALCIUM 8.4 mg/dL (8.6-10.2); CARBON DIOXIDE 25 mEQ/L (20-30); CHLORIDE 102 mEQ/L (98-107); CREATININE 0.9 mg/dL (0.5-0.9); GLOMERULAR FILTRATION RATE > 60 mL/min (>60); HEMOLYSIS 2; MAGNESIUM 1.9 mg/dL (1.7-2.5); PHOSPHORUS 3.6 mg/dL (2.5-4.8); SODIUM 139 mEQ/L (135-145); TOTAL PROTEIN 5.1 g/dL (6.6-8.7)
[2016-05-25 08:01] VITALS: BP 126/84
[2016-05-25] MEDS: Cefepime HCl 1 GM in D5W 55 ML IVPB SCH ×2 (08:17→21:18)
[2016-05-25] MEDS: Lisinopril 20mg tab ORAL SCH ×2 (08:17→21:17)
[2016-05-25] MEDS: Heparin 5000 units/ml inj SUBQ SCH ×2 (08:18→21:00)
[2016-05-25] MEDS ORDERED: Miralax 17gm pkt ORAL PRN (08:30)
[2016-05-25 11:51] VITALS: BP 127/80
[2016-05-25 16:00] VITALS: BP 133/95
--- NOTE | 2016-05-25 16:03 | Infectious Diseases Prog Note ---
Assessment/Plan Assessment/Plan A: ; The patient is a 30-year-old female Diarrhea improving Probable UTI ? SP dysuria HTN GlomNephritis CT scan of the abdomen suggest left ovarian mass versus cyst. PLAN: will continue the patient on cefepime d# 3 / 5 upon DC will change to Levaquin to complete the course , DC vancomycin Monitor CBC Monitor Cultures Monitor BMP . Subjective Constitutional: Denies: anorexia, chills, drenching sweats, fatigue, fever, no symptoms, other Allergies: Coded Allergies: PENICILLINS (Verified Allergy, Unknown, Rash, 05/24/16) 05/24/16: tolerates cefepime/ceftriaxone Subjective diarrhea is improving Objective Vital Signs Last 24 Hour Vital Signs Date Time Temp Pulse Resp B/P Pulse Ox O2 Delivery O2 Flow Rate FiO2 05/25/16 11:51 97.9 80 16 127/80 98 Room Air 05/25/16 08:17 126/84 05/25/16 08:01 98.1 88 19 126/84 98 Room Air 05/25/16 07:49 88 18 Room Air 21 05/25/16 04:00 97.5 89 18 121/78 98 Room Air 05/25/16 00:00 97.7 90 18 121/76 97 Room Air 05/24/16 20:24 133/89 05/24/16 20:00 98.8 91 20 133/85 99 Room Air 05/24/16 19:30 92 20 Room Air 21 Height (Feet): 5 Height (Inches): 2.00 Weight (Pounds): 132 HEENT: atraumatic Respiratory/Chest: no respiratory distress Cardiovascular: regular rhythm Abdomen: no organomegaly Microbiology Date/Time Source Procedure Growth Status 05/23/16 01:18 Blood Blood Culture - Preliminary NO GROWTH AFTER 48 HOURS Resulted 05/23/16 01:00 Blood Blood Culture - Preliminary NO GROWTH AFTER 48 HOURS Resulted 05/23/16 03:31 Nasal Nares Influenza Types A,B Antigen (DWAYNE) - Final Complete 05/24/16 11:40 Stool Clostridium difficile Toxin Assay - Final Complete 05/23/16 21:00 Indwelling Cath Urine Culture - Preliminary NO GROWTH AFTER 24 HOURS Resulted Laboratory Tests Test 05/24/16 22:00 05/25/16 05:50 Stool Occult Blood Positive (NEGATIVE) White Blood Count 8.3 K/UL (4.8-10.8) Red Blood Count 3.03 M/UL (4.20-5.40) L Hemoglobin 8.7 G/DL (12.0-16.0) L Hematocrit 25.7 % (37.0-47.0) L Mean Corpuscular Volume 85 FL (80-99) Mean Corpuscular Hemoglobin 28.7 PG (27.0-31.0) Mean Corpuscular Hemoglobin Concent 33.8 G/DL (32.0-36.0) Red Cell Distribution Width 12.2 % (11.6-14.8) Platelet Count 219 K/UL (150-450) Mean Platelet Volume 5.7 FL (6.5-10.1) L Neutrophils (%) (Auto) 54.3 % (45.0-75.0) Lymphocytes (%) (Auto) 22.2 % (20.0-45.0) Monocytes (%) (Auto) 18.7 % (1.0-10.0) H Eosinophils (%) (Auto) 2.5 % (0.0-3.0) Basophils (%) (Auto) 2.3 % (0.0-2.0) H Sodium Level 139 mEQ/L (135-145) Potassium Level 4.0 mEQ/L (3.4-4.9) Chloride Level 102 mEQ/L (98-107) Carbon Dioxide Level 25 mEQ/L (20-30) Anion Gap 12 (5-15) Blood Urea Nitrogen 10 mg/dL (7-23) Creatinine 0.9 mg/dL (0.5-0.9) Estimat Glomerular Filtration Rate > 60 mL/min (>60) Glucose Level 94 mg/dL (74-106) Calcium Level 8.4 mg/dL (8.6-10.2) L Phosphorus Level 3.6 mg/dL (2.5-4.8) Magnesium Level 1.9 mg/dL (1.7-2.5) Total Bilirubin < 0.2 mg/dL (0.0-1.2) Aspartate Amino Transf (AST/SGOT) 16 U/L (5-40) Alanine Aminotransferase (ALT/SGPT) 16 U/L (3-33) Alkaline Phosphatase 82 U/L (35-104) Total Protein 5.1 g/dL (6.6-8.7) L Albumin 2.5 g/dL (3.5-5.2) L Globulin 2.6 g/dL Albumin/Globulin Ratio 0.9 (1.0-2.7) L Current Medications Medications (Trade) Dose Ordered Sig/Jolene Route PRN Reason Start Time Stop Time Status Last Admin Dose Admin Acetaminophen (Tylenol) 650 mg Q4H PRN ORAL fever 05/25/16 00:30 06/24/16 00:29 Acetaminophen/ Hydrocodone Bitart ([place] 5/325) 1 tab Q6H PRN ORAL Breakthrough Pain 05/25/16 02:30 06/01/16 02:29 Albuterol/ Ipratropium (DuoNeb 0.5-3(2.5)mg/3ml) 3 ml Q4H PRN HHN Shortness of Breath 05/25/16 00:30 05/30/16 00:29 Atorvastatin Calcium (Lipitor) 10 mg BEDTIME ORAL 05/25/16 21:00 06/24/16 20:59 Cefepime HCl/ Dextrose (Maxipime/D5W) 55 ml @ 110 mls/hr EVERY 12 HOURS IVPB 05/25/16 09:00 06/01/16 08:59 05/25/16 08:17 Heparin Sodium (Porcine) (Heparin 5000 units/ml) 5,000 units EVERY 12 HOURS SUBQ 05/25/16 09:00 06/24/16 08:59 Lisinopril (Prinivil) 20 mg Q12HR ORAL 05/25/16 09:00 06/24/16 08:59 05/25/16 08:17 Morphine Sulfate (Morphine Sulfate) 2 mg Q4H PRN IVP Moderate Pain (Pain Scale 4-6) 05/25/16 00:30 06/01/16 00:29 Nitroglycerin (Ntg) 0.4 mg Q5M PRN SL Prn Chest Pain 05/24/16 22:30 06/23/16 22:29 Ondansetron HCl (Zofran) 4 mg Q6H PRN IVP Nausea & Vomiting 05/25/16 02:30 06/24/16 02:29 Polyethylene Glycol (Miralax) 17 gm DAILYPRN PRN ORAL Constipation 05/25/16 08:30 06/24/16 08:29 Temazepam (Restoril) 15 mg HSPRN PRN ORAL Insomnia 05/25/16 08:30 06/01/16 08:29 CESIA AMBRIZ M.D. May 25, 2016 16:03
--- NOTE | 2016-05-25 16:42 | Pulmonology Progress Note ---
Assessment/Plan Problems: (1) Sepsis (2) UTI (urinary tract infection) (3) Anemia Assessment/Plan IV venofer IV antibiotics check cultures, all negative OB positive GI called Subjective ROS Limited/Unobtainable: No Interval Events: doing better Allergies: Coded Allergies: PENICILLINS (Verified Allergy, Unknown, Rash, 05/24/16) 05/24/16: tolerates cefepime/ceftriaxone Objective Last 24 Hour Vital Signs Date Time Temp Pulse Resp B/P Pulse Ox O2 Delivery O2 Flow Rate FiO2 05/25/16 11:51 97.9 80 16 127/80 98 Room Air 05/25/16 08:17 126/84 05/25/16 08:01 98.1 88 19 126/84 98 Room Air 05/25/16 07:49 88 18 Room Air 21 05/25/16 04:00 97.5 89 18 121/78 98 Room Air 05/25/16 00:00 97.7 90 18 121/76 97 Room Air 05/24/16 20:24 133/89 05/24/16 20:00 98.8 91 20 133/85 99 Room Air 05/24/16 19:30 92 20 Room Air 21 Intake and Output 05/24/16 05/25/16 19:00 07:00 Intake Total 1187.416 ml Balance 1187.416 ml Intake Oral 600 ml IV Total 587.416 ml # Voids 3 2 # Bowel Movements 3 Objective HEENT: normocephalic Respiratory/Chest: chest wall non-tender, lungs clear Cardiovascular: normal peripheral pulses, normal rate Abdomen: normal bowel sounds, soft, non tender Extremities: no cyanosis, no clubbing Skin: no ulcers 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 Musculoskeletal: normal muscle bulk, Microbiology Date/Time Source Procedure Growth Status 05/23/16 01:18 Blood Blood Culture - Preliminary NO GROWTH AFTER 48 HOURS Resulted 05/23/16 01:00 Blood Blood Culture - Preliminary NO GROWTH AFTER 48 HOURS Resulted 05/23/16 03:31 Nasal Nares Influenza Types A,B Antigen (DWAYNE) - Final Complete 05/24/16 11:40 Stool Clostridium difficile Toxin Assay - Final Complete 05/23/16 21:00 Indwelling Cath Urine Culture - Preliminary NO GROWTH AFTER 24 HOURS Resulted Laboratory Tests 05/24/16 22:00: Stool Occult Blood Positive 05/25/16 05:50: White Blood Count 8.3, Red Blood Count 3.03L, Hemoglobin 8.7L, Hematocrit 25.7L , Mean Corpuscular Volume 85, Mean Corpuscular Hemoglobin 28.7, Mean Corpuscular Hemoglobin Concent 33.8, Red Cell Distribution Width 12.2, Platelet Count 219, Mean Platelet Volume 5.7L, Neutrophils (%) (Auto) 54.3, Lymphocytes ( %) (Auto) 22.2, Monocytes (%) (Auto) 18.7H, Eosinophils (%) (Auto) 2.5, Basophils (%) (Auto) 2.3H, Sodium Level 139, Potassium Level 4.0, Chloride Level 102, Carbon Dioxide Level 25, Anion Gap 12, Blood Urea Nitrogen 10, Creatinine 0.9, Estimat Glomerular Filtration Rate > 60, Glucose Level 94, Calcium Level 8.4L, Phosphorus Level 3.6, Magnesium Level 1.9, Total Bilirubin < 0.2, Aspartate Amino Transf (AST/SGOT) 16, Alanine Aminotransferase (ALT/SGPT ) 16, Alkaline Phosphatase 82, Total Protein 5.1L, Albumin 2.5L, Globulin 2.6, Albumin/Globulin Ratio 0.9L Current Medications Medications (Trade) Dose Ordered Sig/Jolene Route PRN Reason Start Time Stop Time Status Last Admin Dose Admin Acetaminophen (Tylenol) 650 mg Q4H PRN ORAL fever 05/25/16 00:30 06/24/16 00:29 05/25/16 16:21 Acetaminophen/ Hydrocodone Bitart ([place] 5/325) 1 tab Q6H PRN ORAL Breakthrough Pain 05/25/16 02:30 06/01/16 02:29 Albuterol/ Ipratropium (DuoNeb 0.5-3(2.5)mg/3ml) 3 ml Q4H PRN HHN Shortness of Breath 05/25/16 00:30 05/30/16 00:29 Atorvastatin Calcium (Lipitor) 10 mg BEDTIME ORAL 05/25/16 21:00 06/24/16 20:59 Cefepime HCl/ Dextrose (Maxipime/D5W) 55 ml @ 110 mls/hr EVERY 12 HOURS IVPB 05/25/16 09:00 06/01/16 08:59 05/25/16 08:17 Heparin Sodium (Porcine) (Heparin 5000 units/ml) 5,000 units EVERY 12 HOURS SUBQ 05/25/16 09:00 06/24/16 08:59 Iron Sucrose/ Sodium Chloride (Venofer/Sodium Chloride) 60 ml @ 240 mls/hr BEDTIME IVPB 05/25/16 21:00 05/29/16 21:14 UNV Lisinopril (Prinivil) 20 mg Q12HR ORAL 05/25/16 09:00 06/24/16 08:59 05/25/16 08:17 Morphine Sulfate (Morphine Sulfate) 2 mg Q4H PRN IVP Moderate Pain (Pain Scale 4-6) 05/25/16 00:30 06/01/16 00:29 Nitroglycerin (Ntg) 0.4 mg Q5M PRN SL Prn Chest Pain 05/24/16 22:30 06/23/16 22:29 Ondansetron HCl (Zofran) 4 mg Q6H PRN IVP Nausea & Vomiting 05/25/16 02:30 06/24/16 02:29 Polyethylene Glycol (Miralax) 17 gm DAILYPRN PRN ORAL Constipation 05/25/16 08:30 06/24/16 08:29 Temazepam 15 mg 15 mg HSPRN PRN ORAL Insomnia 05/25/16 08:30 06/01/16 08:29 ANAI SANCHEZ May 25, 2016 16:42
[2016-05-25 19:00] VITALS: BP 130/95
[2016-05-25] MEDS: Iron Sucrose 100 MG in NS 55 ML IVPB SCH (22:02)
[2016-05-26] VITALS: BP 126/78
[2016-05-26 04:00] VITALS: BP 116/72
[2016-05-26 05:14] LABS: BASOPHILS % (AUTO) 2.1 % (0.0-2.0); EOSINOPHILS % (AUTO) 3.4 % (0.0-3.0); LYMPHOCYTES % (AUTO) 33.2 % (20.0-45.0); MEAN CORPUSCULAR HEMOGLOBIN 29.1 PG (27.0-31.0); MEAN CORPUSCULAR HGB CONC 34.9 G/DL (32.0-36.0); MEAN CORPUSCULAR VOLUME 84 FL (80-99); MEAN PLATELET VOLUME 5.7 FL (6.5-10.1); MONOCYTES % (AUTO) 15.3 % (1.0-10.0); NEUTROPHILS % (AUTO) 46.1 % (45.0-75.0); PLATELET COUNT 233 K/UL (150-450); RED BLOOD COUNT 2.89 M/UL (4.20-5.40); RED CELL DISTRIBUTION WIDTH 11.9 % (11.6-14.8)
[2016-05-26 06:42] LABS: ALANINE AMINOTRANSFERASE 15 U/L (3-33); ALBUMIN/GLOBULIN RATIO 0.8 (1.0-2.7); ANION GAP 14 (5-15); ASPARTATE AMINO TRANSFERASE 13 U/L (5-40); CALCIUM 8.1 mg/dL (8.6-10.2); CARBON DIOXIDE 23 mEQ/L (20-30); CHLORIDE 106 mEQ/L (98-107); CREATININE 0.7 mg/dL (0.5-0.9); GLOMERULAR FILTRATION RATE > 60 mL/min (>60); HEMOLYSIS 2; MAGNESIUM 1.9 mg/dL (1.7-2.5); PHOSPHORUS 4.1 mg/dL (2.5-4.8); SODIUM 143 mEQ/L (135-145); TOTAL PROTEIN 5.2 g/dL (6.6-8.7)
[2016-05-26 08:00] VITALS: BP 131/81
[2016-05-26] MEDS: Pantoprazole Inj IVP SCH (08:32)
[2016-05-26] MEDS: Lisinopril 20mg tab ORAL SCH ×2 (08:36→20:55)
[2016-05-26] MEDS: Cefepime HCl 1 GM in D5W 55 ML IVPB SCH ×2 (08:43→20:55)
[2016-05-26] MEDS: Heparin 5000 units/ml inj SUBQ SCH ×2 (09:00→20:55)
[2016-05-26 11:58] VITALS: BP_SYST 122; BP_SYST 74; BP_DIAS 123; BP_DIAS 74
[2016-05-26 16:00] VITALS: BP 133/91
[2016-05-26] MEDS ORDERED: Bisacodyl EC 5mg tab ORAL ONE (16:00)
[2016-05-26] MEDS ORDERED: Nulytely 4L ORAL ONE (16:00)
--- NOTE | 2016-05-26 16:52 | Pulmonology Progress Note ---
Assessment/Plan Problems: (1) Sepsis (2) UTI (urinary tract infection) (3) Anemia Assessment/Plan IV venofer IV antibiotics check cultures, all negative OB positive GI planning endoscopy Subjective ROS Limited/Unobtainable: No Interval Events: doing much better Allergies: Coded Allergies: PENICILLINS (Verified Allergy, Unknown, Rash, 05/24/16) 05/24/16: tolerates cefepime/ceftriaxone Objective Last 24 Hour Vital Signs Date Time Temp Pulse Resp B/P Pulse Ox O2 Delivery O2 Flow Rate FiO2 05/26/16 16:00 97.9 90 20 133/91 100 Room Air 05/26/16 11:58 98.4 77 15 122/74 99 Room Air 05/26/16 08:36 131/81 05/26/16 08:12 89 18 Room Air 21 05/26/16 08:00 97.5 91 18 131/81 98 Room Air 05/26/16 04:00 97.5 74 18 116/72 97 Room Air 05/26/16 00:00 97.7 80 18 126/78 99 Room Air 05/25/16 21:17 130/95 05/25/16 19:58 91 18 Room Air 21 05/25/16 19:00 98.1 79 20 130/95 98 Room Air Intake and Output 05/25/16 05/26/16 19:00 07:00 Intake Total 560 ml 480 ml Balance 560 ml 480 ml Intake Oral 560 ml 480 ml # Voids 3 5 Objective HEENT: normocephalic Respiratory/Chest: chest wall non-tender, lungs clear Cardiovascular: normal peripheral pulses, normal rate Abdomen: normal bowel sounds, soft, non tender Extremities: no cyanosis, no clubbing Skin: no ulcers 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 Musculoskeletal: normal muscle bulk, Microbiology Date/Time Source Procedure Growth Status 05/24/16 11:40 Stool Clostridium difficile Toxin Assay - Final Complete 05/23/16 21:00 Indwelling Cath Urine Culture - Final NO GROWTH AFTER 48 HOURS Complete Laboratory Tests 05/26/16 04:30: White Blood Count 7.0, Red Blood Count 2.89L, Hemoglobin 8.4L, Hematocrit 24.2L , Mean Corpuscular Volume 84, Mean Corpuscular Hemoglobin 29.1, Mean Corpuscular Hemoglobin Concent 34.9, Red Cell Distribution Width 11.9, Platelet Count 233, Mean Platelet Volume 5.7L, Neutrophils (%) (Auto) 46.1, Lymphocytes ( %) (Auto) 33.2, Monocytes (%) (Auto) 15.3H, Eosinophils (%) (Auto) 3.4H, Basophils (%) (Auto) 2.1H, Sodium Level 143, Potassium Level 4.0, Chloride Level 106, Carbon Dioxide Level 23, Anion Gap 14, Blood Urea Nitrogen 13, Creatinine 0.7, Estimat Glomerular Filtration Rate > 60, Glucose Level 96, Calcium Level 8.1L, Phosphorus Level 4.1, Magnesium Level 1.9, Total Bilirubin < 0.2, Aspartate Amino Transf (AST/SGOT) 13, Alanine Aminotransferase (ALT/SGPT ) 15, Alkaline Phosphatase 81, Total Protein 5.2L, Albumin 2.4L, Globulin 2.8, Albumin/Globulin Ratio 0.8L Current Medications Medications (Trade) Dose Ordered Sig/Jolene Route PRN Reason Start Time Stop Time Status Last Admin Dose Admin Acetaminophen (Tylenol) 650 mg Q4H PRN ORAL fever 05/25/16 00:30 06/24/16 00:29 05/25/16 16:21 Acetaminophen/ Hydrocodone Bitart ([place] 5/325) 1 tab Q6H PRN ORAL Breakthrough Pain 05/25/16 02:30 06/01/16 02:29 Albuterol/ Ipratropium (DuoNeb 0.5-3(2.5)mg/3ml) 3 ml Q4H PRN HHN Shortness of Breath 05/25/16 00:30 05/30/16 00:29 Atorvastatin Calcium (Lipitor) 10 mg BEDTIME ORAL 05/25/16 21:00 06/24/16 20:59 05/25/16 21:17 Cefepime HCl/ Dextrose (Maxipime/D5W) 55 ml @ 110 mls/hr EVERY 12 HOURS IVPB 05/25/16 09:00 06/01/16 08:59 05/26/16 08:43 Heparin Sodium (Porcine) (Heparin 5000 units/ml) 5,000 units EVERY 12 HOURS SUBQ 05/25/16 09:00 06/24/16 08:59 Iron Sucrose/ Sodium Chloride (Venofer/Sodium Chloride) 60 ml @ 240 mls/hr BEDTIME IVPB 05/25/16 21:00 05/29/16 21:14 05/25/16 22:02 Lisinopril (Prinivil) 20 mg Q12HR ORAL 05/25/16 09:00 06/24/16 08:59 05/26/16 08:36 Morphine Sulfate (Morphine Sulfate) 2 mg Q4H PRN IVP Moderate Pain (Pain Scale 4-6) 05/25/16 00:30 06/01/16 00:29 Nitroglycerin (Ntg) 0.4 mg Q5M PRN SL Prn Chest Pain 05/24/16 22:30 06/23/16 22:29 Ondansetron HCl (Zofran) 4 mg Q6H PRN IVP Nausea & Vomiting 05/25/16 02:30 06/24/16 02:29 Pantoprazole (Protonix) 40 mg DAILY IVP 05/26/16 09:00 06/25/16 08:59 05/26/16 08:32 Polyethylene Glycol (Miralax) 17 gm DAILYPRN PRN ORAL Constipation 05/25/16 08:30 06/24/16 08:29 Temazepam 15 mg 15 mg HSPRN PRN ORAL Insomnia 05/25/16 08:30 06/01/16 08:29 ANAI SANCHEZ May 26, 2016 16:52
[2016-05-26 19:00] VITALS: BP 131/89
[2016-05-26] MEDS: Iron Sucrose 100 MG in NS 55 ML IVPB SCH (21:00)
[2016-05-27] VITALS (8 sets, daily range): BP systolic 116–135; BP diastolic 70–89
--- NOTE | 2016-05-27 07:54 | Pre-Procedure Note/Attestation ---
Pre-Procedure Note/Attestation Complete Prior to Procedure Planned Procedure: not applicable Procedure Narrative: egd/colonoscopy Indications for Procedure Pre-Operative Diagnosis: anemia Attestation I attest that I discussed the nature of the procedure; its benefits; risks and complications; and alternatives (and the risks and benefits of such alternatives ), prior to the procedure, with the patient (or the patient's legal escrow representative). I attest that, if there was a reasonable possibility of needing a blood transfusion, the patient (or the patient's legal escrow representative) was given the [facility] standardized written summary, pursuant to the Edgar Jonel Blood Safety Act ([place] Health and Safety Code # 1645, as amended). I attest that I re-evaluated the patient just prior to the surgery and that there has been no change in the patient's H&P, except as documented below: EMILY BECK May 27, 2016 07:54
[2016-05-27] MEDS ORDERED: Propofol 10mg/ml 20ml IV ONE (08:00)
--- NOTE | 2016-05-27 08:11 | Endoscopy Procedure Note ---
Endoscopy Procedure Note Indication for Procedure: anemia Procedures Performed: EGD, colonoscopy Operative Findings/Diagnosis: gastritis, hemorrhoids Specimen: yes Pt Tolerated Procedure Well: Yes Estimated Blood Loss: none Anesthesiologist: gurjit Anesthesia: MAC Implant(s) used?: No 50 yrs or older w/o bx or poly: Not Applicable 10yrs. F/U not recommended: Not Applicable EMILY BECK May 27, 2016 08:11
--- NOTE | 2016-05-27 08:19 | Immediate Post-Op Evaluation ---
Immediate Post-Op Evalulation Immediate Post-Op Evalulation Date of Evaluation: May 27, 2016 Time of Evaluation: 08:40 IV Fluids: 500 Blood Pressure Systolic: 113 Blood Pressure Diastolic: 71 Pulse Rate: 70 Respiratory Rate: 19 O2 Sat by Pulse Oximetry: 100 Temperature (Fahrenheit): 98.5 Pain Score (1-10): 0 Nausea: No Vomiting: No Complications none Patient Status: awake, patent, none Hydration Status: adequate Monty Lopez MD May 27, 2016 08:19
--- NOTE | 2016-05-27 08:19 | Anethesia Preoperative Eval ---
Anesthesia Pre-op PMH/ROS General Date of Evaluation: May 27, 2016 Time of Evaluation: 07:55 Anesthesiologist: gurjit ASA Score: ASA 3 Mallampati Score Class I : Soft palate, uvula, fauces, pillars visible Class II: Soft palate, uvula, fauces visible Class III: Soft palate, base of uvula visible Class IV: Only hard plate visible Mallampati Classification: Class II Surgeon: radhika Diagnosis: anemia Surgical Procedure: egd/colonoscopy Anesthesia History: none Allergies: Coded Allergies: PENICILLINS (Verified Allergy, Unknown, Rash, 05/24/16) 05/24/16: tolerates cefepime/ceftriaxone Past Medical History Cardiovascular: Reports: HTN Gastrointestinal/Genitourinary: Reports: other - ovarian cysts Anesthesia Pre-op Phys. Exam Physician Exam Last Vital Signs Date Time Temp Pulse Resp B/P Pulse Ox O2 Delivery O2 Flow Rate FiO2 05/27/16 04:00 97.9 75 16 125/75 100 Room Air 05/26/16 19:35 21 Airway Exam Mallampati Score: Class II Teeth: intact Anesthesia Pre-op A/P Risk Assessment & Plan Plan: propofol Status Change Before Surgery: Monty Hahn MD May 27, 2016 08:19
--- NOTE | 2016-05-27 08:20 | 48 Hour Post Anesthesia Eval ---
Post Anesthesia Evaluation Date of Evaluation: May 27, 2016 Time of Evaluation: 09:30 Blood Pressure Systolic: 119 0: 79 Pulse Rate: 78 Respiratory Rate: 18 Temperature (Fahrenheit): 97 O2 Sat by Pulse Oximetry: 100 Airway: patent Nausea: No Vomiting: No Pain Intensity: 0 Hydration Status: adequate Cardiopulmonary Status: stable Mental Status/LOC: patient returned to baseline Follow-up Care/Observations: n/a Post-Anesthesia Complications: tolerated well Follow-up care needed: N/A Monty Lopez MD May 27, 2016 08:20
[2016-05-27] MEDS: Heparin 5000 units/ml inj SUBQ SCH (09:00)
[2016-05-27] MEDS: Cefepime HCl 1 GM in D5W 55 ML IVPB SCH (09:24)
[2016-05-27] MEDS: Lisinopril 20mg tab ORAL SCH (09:24)
[2016-05-27] MEDS: Pantoprazole Inj IVP SCH (09:24)
--- NOTE | 2016-05-27 09:55 | Infectious Diseases Prog Note ---
Assessment/Plan Assessment/Plan A: ; The patient is a 30-year-old female Diarrhea improving Probable UTI ? SP dysuria SP EGD and Colonoscopy : Gastritis HTN GlomNephritis CT scan of the abdomen suggest left ovarian mass versus cyst. PLAN: DC cefepime d# 5 / 5 ok to DC pt off of AB Rx , DC vancomycin Monitor CBC Monitor Cultures Monitor BMP . Subjective Constitutional: Denies: anorexia, chills, drenching sweats, fatigue, fever, no symptoms, other Allergies: Coded Allergies: PENICILLINS (Verified Allergy, Unknown, Rash, 05/24/16) 05/24/16: tolerates cefepime/ceftriaxone Subjective diarrhea is improved Objective Vital Signs Last 24 Hour Vital Signs Date Time Temp Pulse Resp B/P Pulse Ox O2 Delivery O2 Flow Rate FiO2 05/27/16 09:51 97.0 78 14 135/89 98 Room Air 05/27/16 09:47 78 18 100 05/27/16 09:24 119/79 05/27/16 08:55 97.0 76 18 122/87 100 Room Air 05/27/16 08:44 73 14 119/79 100 Room Air 05/27/16 08:40 90 18 Room Air 21 05/27/16 08:39 71 15 117/82 100 Nasal Cannula 3.0 05/27/16 08:36 70 19 100 05/27/16 08:34 96.8 68 14 116/73 100 Nasal Cannula 3.0 05/27/16 04:00 97.9 75 16 125/75 100 Room Air 05/27/16 00:00 97.7 72 17 123/77 100 Room Air 05/26/16 20:55 131/89 05/26/16 19:35 96 18 Room Air 21 05/26/16 19:00 98.8 82 18 131/89 100 Room Air 05/26/16 16:00 97.9 90 20 133/91 100 Room Air 05/26/16 11:58 98.4 77 15 122/74 99 Room Air Height (Feet): 5 Height (Inches): 1.00 Weight (Pounds): 132 Respiratory/Chest: no respiratory distress Cardiovascular: regularly irregular Abdomen: non distended Microbiology Date/Time Source Procedure Growth Status 05/24/16 11:40 Stool Clostridium difficile Toxin Assay - Final Complete Current Medications Medications (Trade) Dose Ordered Sig/Jolene Route PRN Reason Start Time Stop Time Status Last Admin Dose Admin Acetaminophen (Tylenol) 650 mg Q4H PRN ORAL fever 05/25/16 00:30 06/24/16 00:29 05/25/16 16:21 Acetaminophen/ Hydrocodone Bitart ([place] 5/325) 1 tab Q6H PRN ORAL Breakthrough Pain 05/25/16 02:30 06/01/16 02:29 Albuterol/ Ipratropium (DuoNeb 0.5-3(2.5)mg/3ml) 3 ml Q4H PRN HHN Shortness of Breath 05/25/16 00:30 05/30/16 00:29 Atorvastatin Calcium (Lipitor) 10 mg BEDTIME ORAL 05/25/16 21:00 06/24/16 20:59 05/26/16 20:55 Cefepime HCl/ Dextrose (Maxipime/D5W) 55 ml @ 110 mls/hr EVERY 12 HOURS IVPB 05/25/16 09:00 06/01/16 08:59 05/27/16 09:24 Heparin Sodium (Porcine) (Heparin 5000 units/ml) 5,000 units EVERY 12 HOURS SUBQ 05/25/16 09:00 06/24/16 08:59 Iron Sucrose/ Sodium Chloride (Venofer/Sodium Chloride) 60 ml @ 240 mls/hr BEDTIME IVPB 05/25/16 21:00 05/29/16 21:14 05/26/16 21:00 Lisinopril (Prinivil) 20 mg Q12HR ORAL 05/25/16 09:00 06/24/16 08:59 05/27/16 09:24 Morphine Sulfate (Morphine Sulfate) 2 mg Q4H PRN IVP Moderate Pain (Pain Scale 4-6) 05/25/16 00:30 06/01/16 00:29 Nitroglycerin (Ntg) 0.4 mg Q5M PRN SL Prn Chest Pain 05/24/16 22:30 06/23/16 22:29 Ondansetron HCl (Zofran) 4 mg Q6H PRN IVP Nausea & Vomiting 05/25/16 02:30 06/24/16 02:29 Pantoprazole (Protonix) 40 mg DAILY IVP 05/26/16 09:00 4/8/17 08:59 05/27/16 09:24 Polyethylene Glycol (Miralax) 17 gm DAILYPRN PRN ORAL Constipation 05/25/16 08:30 06/24/16 08:29 Temazepam 15 mg 15 mg HSPRN PRN ORAL Insomnia 05/25/16 08:30 06/01/16 08:29 CESIA AMBRIZ M.D. May 27, 2016 09:55
[2016-05-27 10:10] LABS: BASOPHILS % (AUTO) 3.6 % (0.0-2.0); EOSINOPHILS % (AUTO) 1.5 % (0.0-3.0); MEAN CORPUSCULAR HEMOGLOBIN 28.3 PG (27.0-31.0); MEAN CORPUSCULAR VOLUME 83 FL (80-99); MEAN PLATELET VOLUME 5.2 FL (6.5-10.1); MONOCYTES % (AUTO) 16.4 % (1.0-10.0); NEUTROPHILS % (AUTO) 55.5 % (45.0-75.0); PLATELET COUNT 302 K/UL (150-450); RED BLOOD COUNT 3.31 M/UL (4.20-5.40); RED CELL DISTRIBUTION WIDTH 11.8 % (11.6-14.8); WHITE BLOOD COUNT 10.2 K/UL (4.8-10.8)
[2016-05-27 10:27] LABS: ANION GAP 16 (5-15); CALCIUM 8.2 mg/dL (8.6-10.2); CARBON DIOXIDE 23 mEQ/L (20-30); CHLORIDE 102 mEQ/L (98-107); CREATININE 0.8 mg/dL (0.5-0.9); GLOMERULAR FILTRATION RATE > 60 mL/min (>60); HEMOLYSIS 1; POTASSIUM 3.7 mEQ/L (3.4-4.9); SODIUM 141 mEQ/L (135-145)
--- NOTE | 2016-05-27 15:51 | Cardiology Report ---
APPROVED REPORT EKG Measurement Heart [id number] FL [id number] Sinus tachycardia Nonspecific T wave abnormality Abnormal ECG
--- NOTE | 2016-05-27 17:09 | Procedure Note ---
DATE OF PROCEDURE: 05/27/2016 SURGEON: Evaristo Keenan M.D. PROCEDURE: Upper endoscopy with biopsy and colonoscopy. ANESTHESIOLOGIST: Monty Lopez M.D. INSTRUMENT: Olympus adult flexible upper endoscope and colonoscope. INDICATION: 1. Iron-deficiency anemia. 2. Stool OB positive x2. REASON FOR PROCEDURE: The procedure, risks, benefits, and possible consequences, including hemorrhage, aspiration, perforation and infection, and alternative treatments, were explained to the patient/legal guardian by Dr. Evaristo Keenan and the patient/legal guardian understood and accepted these risks. DESCRIPTION OF PROCEDURE: After informed consent was obtained and the patient was adequately sedated, Olympus upper endoscope was advanced from mouth into the second portion of the duodenum and retroflexion was performed in the stomach. The patient has diffuse gastritis. Random biopsy from antrum was obtained to rule out H. pylori infection. The rest of the examination was within normal limit. At this time, the upper endoscope was retrieved and the patient was turned over for colonoscopy. First, a rectal exam was performed, which was positive for internal and external hemorrhoids. Then, the scope was advanced to the cecum, documented by appendiceal orifice, ileocecal valve, and right upper quadrant palpation. Quality of prep was very good. The patient had normal colonoscopic examination except for hemorrhoids on the retroflexion. Otherwise, rest of the exam was within normal limits. SUMMARY OF FINDINGS: 1. Gastritis status post biopsy. 2. Internal and external hemorrhoids. RECOMMENDATIONS: Follow biopsy results and treat accordingly. I want to thank Dr. Tovar for this kind referral. Evaristo Keenan M.D. DR: LAXMI JOB#: [id number] CC:
[2016-05-27] MEDS ORDERED: NS 550ML IV ONE (17:42)
--- NOTE | 2016-05-30 10:14 | Discharge Summary ---
Discharge Summary Hospital Course Date of Admission May 23, 2016 at 03:58 Date of Discharge May 27, 2016 at 17:43 Admitting Diagnosis Sepsis. UTI HPI Jessica Sandoval is a 30 year old female who was admitted on May 23, 2016 at 03: 58 [address]inary Track Infection Hospital Course dc summary #[id number] Discharge Medications Continued Medications: Atorvastatin Calcium* (Lipitor*) 10 Mg Tablet 10 MG ORAL BEDTIME, TAB Hydrocodone Bit/Acetaminophen 5-325* ([place] 5-325*) 1 Each Tablet 1 TAB PO Q6H, #20 TAB Take 1 tablet by mouth every 6 hours as needed for pain. Labetalol Hcl* (Normodyne*) 300 Mg Tablet 400 MG PO Q12H, #20 TAB Take 1 tablet by mouth every 12 hours. Nifedipine Er* (Adalat Cc*) 60 Mg Tablet.er 60 MG PO DAILY, #30 TAB Do not chew or crush tablet [High choles pill] () Discharge Condition Upon Discharge: stable Discharge Disposition Patient was discharged to Home (01) Discharge Diagnoses: Discharge Instructions Discharge Instructions Special Instructions I have been assigned to complete a D/C Summary on this account. I was not involved in the patient management Kandice Rosas NP ([place]) May 30, 2016 10:14
--- NOTE | 2016-05-31 01:18 | Discharge Summary 2 SIG ---
DATE OF ADMISSION: 05/23/2016 DATE OF DISCHARGE: 05/27/2016 REASON FOR ADMISSION: 30-year-old female with a history of urinary tract infection and recent kidney biopsy, which revealed glomerulonephritis, but showed no kidney abnormality, presented with complaints of fever, chills, and back pain for one day. She denied cough or congestion. She reported urinary frequency, no dysuria. No diarrhea. No abdominal pain. Workup in the emergency room revealed anemia . Chest x-ray demonstrated no evidence of pneumonia. EKG revealed sinus tachycardia. CT of the abdomen and pelvis revealed no evidence of pyelonephritis, but suggested low density mass versus cyst in the left ovary, not well characterized on this examination. Urinalysis with + 4 protein. The patient received antibiotic in the emergency department for possible pyelonephritis. Patient was admitted because she was febrile and tachycardic , despite Tylenol and IV fluids. She started on ertapenem and transferred to the floor for further management. No evidence of pyelo on CT abdomen/pelvis. ADMITTING DIAGNOSES: 1. Sepsis. 2. Possible urinary tract infection/pyelo. 3. Anemia. 4. Proteinuria. 5. Back pain. HOSPITAL STAY: The patient admitted to the floor. The patient started on IV fluids. Infectious Disease doctor consult requested. The patient started on antibiotics. Blood culture, stool for C. difficile, urine culture, and influenza screen were all negative. The patient noted to be anemic. Anemia workup revealed iron deficiency anemia. Stool OB x2 was positive. Gastrointestinal consult was requested and the patient subsequently undergone EGD and colonoscopy, which revealed gastritis, status post biopsy as well as internal and external hemorrhoids. Fever resolved. No leukocytosis. The patient received two doses of Venofer IV. DVT prophylaxis provided. Bowel regimen provided. Blood pressure was managed with beta aurora and calcium channel aurora and was stable. Renal parameters were closely monitored, within normal limits. The patient was stable for discharge. The patient was recommended due to the finding of left ovarian mass versus cyst, to undergo pelvic and transvaginal ultrasound. The patient with prior history of dysfunctional uterine bleeding. The patient stated that she was going to go and see her primary medical doctor. The patient strongly advised to follow up next week with the OB-RECHARGER to schedule pelvic and transvaginal ultrasound to further delineate left ovarian mass versus cyst. The patient was stable for discharge. DISCHARGE DIAGNOSES: 1. Sepsis. 2. Iron deficiency anemia, 3. Status post esophagogastroduodenoscopy and colonoscopy. 3. Gastritis, status post biopsy. 4. Internal and external hemorrhoids. 5. Proteinuria. 6. Back pain. 7. Left ovarian mass versus cyst. 8. History of recent kidney biopsy with findings of glomerulonephritis. 9. Hypertension. DISCHARGE MEDICATIONS: See medication reconciliation list. DISCHARGE INSTRUCTIONS: The patient to follow up next week with the OB-RECHARGER for pelvic transvaginal ultrasound. Follow up with the primary medical doctor. Teresa Tovar M.D. I have been assigned to dictate discharge summary on this account and I was not involved in the patient's management. Kandice BakerBrunswick Hospital CenterGavi N.PLoyd DR: PURA JOB#: [id number] CC: KAREN
== END 2016-05-27 17:43 | disposition home or self-care (01) | DRG 720 ==
LOC: EMR 05-23 00:56 → 2E 05-23 03:58 → EDBEDREQ 05-23 05:01 → 4E 05-24 22:15
PROC: 0DB68ZX Excision of Stomach, Via Natural or Artificial Opening Endoscopic, Diagnostic (ICD-10-PCS; principal; 2016-05-27 08:07)
PROC: 0DJD8ZZ Inspection of Lower Intestinal Tract, Via Natural or Artificial Opening Endoscopic (ICD-10-PCS; 2016-05-27 08:07)
DX: A41.9 Sepsis, unspecified organism (principal); I10 Essential (primary) hypertension; N39.0 Urinary tract infection, site not specified; D64.9 Anemia, unspecified; M54.9 Dorsalgia, unspecified; D50.9 Iron deficiency anemia, unspecified; K29.70 Gastritis, unspecified, without bleeding; K64.4 Residual hemorrhoidal skin tags; K64.8 Other hemorrhoids; N83.9 Noninflammatory disorder of ovary, fallopian tube and broad ligament, unspecified; N83.209 Unspecified ovarian cyst, unspecified side; Z88.0 Allergy status to penicillin; R19.7 Diarrhea, unspecified
CPT/HCPCS: 36415; 71010; 74176; 80048; 80053; 81001; 81003; 81025; 82270; 82378; 82607; 82746; 83540; 83550; 83605; 83615; 83735; 84100; 85007; 85025; 85044; 85060; 85610; 85651; 85730; 86710; 87040; 87086; 87493; 93005; 94003; 94150; 94664; J8499

== ENCOUNTER 2017-02-21 19:36 | Emergency (ER) | payer MEDICAID ==
[~2017-02-21] VITALS: Ht 157.5 cm; Wt 60.3 kg
[2017-02-21] MEDS ORDERED: fentaNYL 100 mcg/2 mL IV ONE (20:15)
[2017-02-21 20:31] LABS: APPEARANCE,URINE SLIGHTLY CLOUDY; KETONES,URINE NEGATIVE (NEGATIVE); LEUKOCYTE ESTERASE ,URINE 2+ (NEGATIVE); NITRITE,URINE POSITIVE (NEGATIVE); PH,URINE 5 (4.5-8.0); PROTEIN,URINE 4+ (NEGATIVE); UROBILINOGEN,URINE NORMAL MG/DL (0.0-1.0)
[2017-02-21 20:38] LABS: BACTERIA,URINE MANY /HPF; SQUAMOUS EPITHELIAL CELL,UR FEW /LPF (NONE/OCC); WBC,URINE TNTC /HPF (0 - 2)
[2017-02-21 20:44] LABS: BASOPHILS % (AUTO) 2.9 % (0.0-2.0); EOSINOPHILS % (AUTO) 1.8 % (0.0-3.0); LYMPHOCYTES % (AUTO) 20.6 % (20.0-45.0); MEAN CORPUSCULAR HEMOGLOBIN 30.4 PG (27.0-31.0); MEAN CORPUSCULAR HGB CONC 34.5 G/DL (32.0-36.0); MEAN CORPUSCULAR VOLUME 88 FL (80-99); MEAN PLATELET VOLUME 6.1 FL (6.5-10.1); MONOCYTES % (AUTO) 18.4 % (1.0-10.0); NEUTROPHILS % (AUTO) 56.4 % (45.0-75.0); PLATELET COUNT 381 K/UL (150-450); RED BLOOD COUNT 3.91 M/UL (4.20-5.40); RED CELL DISTRIBUTION WIDTH 10.9 % (11.6-14.8); WHITE BLOOD COUNT 12.8 K/UL (4.8-10.8)
[2017-02-21] MEDS ORDERED: cefTRIAXone 1 GM in NS 55 ML IVPB ONE (20:45)
[2017-02-21 20:53] LABS: ANION GAP 12 mmol/L (5-15); CALCIUM 8.4 MG/DL (8.5-10.1); CARBON DIOXIDE 23 MMOL/L (21-32); CHLORIDE 103 MMOL/L (98-107); CREATININE 1.4 MG/DL (0.55-1.30); GLOMERULAR FILTRATION RATE 43.6 mL/min (>60); POTASSIUM 4.1 MMOL/L (3.5-5.1); SODIUM 138 MMOL/L (136-145)
[2017-02-21 20:54] LABS: INR 0.9 (0.9-1.1)
[2017-02-21 20:58] LABS: ALANINE AMINOTRANSFERASE 20 U/L (12-78); ALBUMIN/GLOBULIN RATIO 0.8 (1.0-2.7); ASPARTATE AMINO TRANSFERASE 14 U/L (15-37); LIPASE 141 U/L (73-393); TOTAL PROTEIN 7.8 G/DL (6.4-8.2)
--- NOTE | 2017-02-21 21:34 | Emergency Room Report ---
History of Present Illness General Chief Complaint: Lower Back Pain or Injury Source: Patient Present Illness HPI Patient with 3 days of R flank pain. She initially thought she had pulled a muscle, but now with constant pain, not positional. Pain rated at 7-8 today, aching and pressure, not radiating. No dysuria. Had UTI once before. Only taking tylenol and decreased this as worried about "too much pain medicine". 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 Protein in urine in past. On lisinopril "to protect kidney". Never on steroids that she knows of. Renal function checked every 2 months - last reported "90th percentile". No hematuria. No chills. Feels warm. Appetite decreased during this time. No rashes. No foamy urine. LNMP 01/25. Sometimes will get discomfort with menses. Has IUD. No headache, joint pain, numbness. Denies diabetes. Allergies: Coded Allergies: PENICILLINS (Verified Allergy, Unknown, Rash, 05/24/16) 05/24/16: tolerates cefepime/ceftriaxone Patient History Social History: Denies: smoking Social History Narrative 5 boys 5-14, Last Menstrual Period: jan 25 Now: No : 5 Reviewed Nursing Documentation: PMH: Agreed, PSxH: Agreed Nursing Documentation-PMH Hx Cardiac Problems: Yes Hx Hypertension: Yes Hx Pacemaker: No Hx Asthma: No Hx COPD: No Hx Diabetes: No Hx Cancer: No Hx Gastrointestinal Problems: Yes - kidney disease Hx Dialysis: No - UTI in 2001 Hx Neurological Problems: No Hx Cerebrovascular Accident: No Hx Seizures: No Review of Systems All Other Systems: negative except mentioned in HPI Physical Exam Vital Signs Date Time Temp Pulse Resp B/P (MAP) Pulse Ox O2 Delivery O2 Flow Rate FiO2 02/21/17 19:43 99.5 91 20 136/89 98 Room Air Sp02 EP Interpretation: reviewed, normal General Appearance: well appearing, no apparent distress, GCS 15 Head: normocephalic Eyes: bilateral eye normal inspection, bilateral eye PERRL ENT: moist mucus membranes Neck: supple Respiratory: lungs clear, normal breath sounds Cardiovascular #1: regular rate, rhythm Cardiovascular #2: 2+ radial (R) Gastrointestinal: normal inspection, normal bowel sounds, non tender, no mass, non-distended Genitourinary: CVA tenderness (R) Musculoskeletal: back normal, gait/station normal, normal range of motion Neurologic: alert, oriented x3, grossly normal Psychiatric: mood/affect normal Skin: normal inspection, warm/dry Medical Decision Making Diagnostic Impression: Primary Impression: Pyelonephritis Additional Impression: Renal insufficiency ER Course Patient with R flank pain with h/o renal disease. Ddx; UTI, pyelo, muscle strain, menstrual pain amongst others. Evaluation with labs with UA. Treatment with IV hydration, analgesia. Labs with pyuria and leukocytosis. Clinical picture of pyelo. Rocephin given IV. Some renal insufficiency (she does not know her baseline creat). Improved with analgesia and hydration. Discussed need to discuss with mining detail draftsperson and need for antibiotics covering pyelo. Also discussed that if not doing well to return. Patient stable for outpatient observation and treatment Laboratory Tests Test 02/21/17 20:09 White Blood Count 12.8 K/UL (4.8-10.8) H Red Blood Count 3.91 M/UL (4.20-5.40) L Hemoglobin 11.9 G/DL (12.0-16.0) L Hematocrit 34.4 % (37.0-47.0) L Mean Corpuscular Volume 88 FL (80-99) Mean Corpuscular Hemoglobin 30.4 PG (27.0-31.0) Mean Corpuscular Hemoglobin Concent 34.5 G/DL (32.0-36.0) Red Cell Distribution Width 10.9 % (11.6-14.8) L Platelet Count 381 K/UL (150-450) Mean Platelet Volume 6.1 FL (6.5-10.1) L Neutrophils (%) (Auto) 56.4 % (45.0-75.0) Lymphocytes (%) (Auto) 20.6 % (20.0-45.0) Monocytes (%) (Auto) 18.4 % (1.0-10.0) H Eosinophils (%) (Auto) 1.8 % (0.0-3.0) Basophils (%) (Auto) 2.9 % (0.0-2.0) H Prothrombin Time 9.0 SEC (9.30-11.50) L Prothrombin Time INR 0.9 (0.9-1.1) PTT 29 SEC (23-33) Urine Color Pale yellow Urine Appearance Slightly cloudy Urine pH 5 (4.5-8.0) Urine Specific [place] 1.015 (1.005-1.035) Urine Protein 4+ (NEGATIVE) H Urine Glucose (UA) Negative (NEGATIVE) Urine Ketones Negative (NEGATIVE) Urine Occult Blood 5+ (NEGATIVE) H Urine Nitrite Positive (NEGATIVE) H Urine Bilirubin Negative (NEGATIVE) Urine Urobilinogen Normal MG/DL (0.0-1.0) Urine Leukocyte Esterase 2+ (NEGATIVE) H Urine RBC 2-4 /HPF (0 - 2) H Urine WBC Tntc /HPF (0 - 2) H Urine Squamous Epithelial Cells Few /LPF (NONE/OCC) Urine Bacteria Many /HPF (NONE) H Urine HCG, Qualitative Negative Sodium Level 138 MMOL/L (136-145) Potassium Level 4.1 MMOL/L (3.5-5.1) Chloride Level 103 MMOL/L (98-107) Carbon Dioxide Level 23 MMOL/L (21-32) Anion Gap 12 mmol/L (5-15) Blood Urea Nitrogen 27 mg/dL (7-18) H Creatinine 1.4 MG/DL (0.55-1.30) H Estimate Glomerular Filtration Rate 43.6 mL/min (>60) Glucose Level 107 MG/DL (74-106) H Calcium Level 8.4 MG/DL (8.5-10.1) L Total Bilirubin 0.3 MG/DL (0.2-1.0) Aspartate Amino Transferase (AST) 14 U/L (15-37) L Alanine Aminotransferase (ALT) 20 U/L (12-78) Alkaline Phosphatase 118 U/L (46-116) H Total Protein 7.8 G/DL (6.4-8.2) Albumin 3.5 G/DL (3.4-5.0) Globulin 4.3 g/dL Albumin/Globulin Ratio 0.8 (1.0-2.7) L Lipase 141 U/L (73-393) Last Vital Signs Date Time Temp Pulse Resp B/P (MAP) Pulse Ox O2 Delivery O2 Flow Rate FiO2 02/21/17 21:42 99.5 68 20 133/86 99 Room Air Status: improved Disposition: HOME, SELF-CARE Condition: Improved Scripts Tramadol Hcl* (ULTRAM*) 50 Mg Tablet 50 MG ORAL Q6H Y for For Pain, #10 TAB 1 Refill Prov: Zhanna,Teodoro M.D. 02/21/17 Cephalexin* (KEFLEX*) 500 Mg Capsule 500 MG ORAL Q6H, #40 CAP 0 Refills Prov: Teodoro Chao M.D. 02/21/17 Referrals: [id number],REFERRING (PCP) Teodoro Chao M.D. Feb 21, 2017 21:34
[2017-02-21] MEDS ORDERED: KEFLEX500 MG ORAL (21:35)
[2017-02-21] MEDS ORDERED: TRAMADOL HCL50 MG ORAL (21:35)
[2017-02-21 21:42] VITALS: BP 133/86
== END 2017-02-21 21:42 | disposition home or self-care (01) ==
LOC: EMR 20:09
DX: N12 Tubulo-interstitial nephritis, not specified as acute or chronic (principal); N28.9 Disorder of kidney and ureter, unspecified; I10 Essential (primary) hypertension; Z88.0 Allergy status to penicillin
CPT/HCPCS: 36415; 80053; 81003; 81025; 83690; 85025; 85610; 85730; 87086; 87181; 96361; 96365; 96375; 99284; J0696; J2405; J3010

== ENCOUNTER 2018-05-28 09:54 | Emergency (ER) | payer MEDICAID ==
[~2018-05-28] VITALS: Ht 157.5 cm; Wt 58.1 kg
[~2018-05-28 09:54] MED LIST changes: +TRAMADOL HCL50 MG ORAL
--- NOTE | 2018-05-28 10:10 | NUR ---
ED Nurse Note: Pt has been having headache since Monday05/25/18, tried to blow her nose and nosebleed started on the same day and has been on-and -off until today, also complains of tingling on bilateral hands. BP 167/110 , HR 103, ERMD. Pain 6/10 acry. No active bleeding right now. AOx4, other VSS. Will cont to monitor.
[2018-05-28 10:13] VITALS: BP 167/110
--- NOTE | 2018-05-28 10:27 | Emergency Room Report ---
History of Present Illness General Chief Complaint: Nosebleed Source: Patient Present Illness HPI Patient presents with 2 problems. One is nosebleed. This is been intermittent for the last 4 days. She's not been compliant with her lisinopril. Her last dose was yesterday. She takes 20 mg. She states that she has renal disease also. She says she had nosebleeds when she was with her 7-year-old. At that time she found out that she had high blood pressure. She is a mild headache. She denies nasal congestion but feels that the right side of her nose is blocked because of the blood. Every time she blows her nose it starts to bleed again. Is been minimal bleeding and no blood clots. She denies any other bleeding problems. There is no nausea or vomiting. No change in bowels. The second issue is that she has grief from the of her father in law on May 20. This is causing her to be stressed and worried about her own health. She's felt weak and has a mild headache. She denies chest pain or palpitations. She had some tingling in her hands and around her mouth earlier today. This is resolved. She still feels strange. The patient also has high cholesterol and has not been taking her atorvastatin. She is not sure what the renal problem is. She had a biopsy April 2016. Allergies: Coded Allergies: PENICILLINS (Verified Allergy, Unknown, Rash, 05/24/16) 05/24/16: tolerates cefepime/ceftriaxone Patient History Past Medical History: see triage record, HTN, renal disease, other - cholesterol Social History: Denies: smoking, alcohol use, drug use Social History Narrative - 6 yo Now: No : 4 Reviewed Nursing Documentation: PMH: Agreed; PSxH: Agreed Nursing Documentation-PMH Hx Cardiac Problems: Yes Hx Hypertension: Yes Hx Pacemaker: No Hx Asthma: No Hx COPD: No Hx Diabetes: No Hx Cancer: No Hx Gastrointestinal Problems: Yes - kidney disease Hx Dialysis: No - UTI in 2001 Hx Neurological Problems: No Hx Cerebrovascular Accident: No Hx Seizures: No Review of Systems All Other Systems: negative except mentioned in HPI Physical Exam Vital Signs Date Time Temp Pulse Resp B/P (MAP) Pulse Ox O2 Delivery O2 Flow Rate FiO2 05/28/18 09:58 98.1 86 16 173/112 98 Room Air Sp02 EP Interpretation: reviewed, normal General Appearance: well appearing, no apparent distress, GCS 15 Head: normocephalic Eyes: bilateral eye normal inspection, bilateral eye PERRL ENT: hearing grossly normal, normal pharynx, normal voice, TMs + canals normal , moist mucus membranes, other - Inflammation nasal septum on the right-hand side without active bleeding Neck: supple Respiratory: lungs clear, normal breath sounds Cardiovascular #1: regular rate, rhythm Cardiovascular #2: 2+ radial (R) Gastrointestinal: normal inspection, normal bowel sounds, non tender, no mass, non-distended Musculoskeletal: back normal, gait/station normal, normal range of motion Neurologic: alert, oriented x3, grossly normal Psychiatric: depressed affect, anxious Skin: normal inspection, warm/dry Medical Decision Making Diagnostic Impression: Primary Impression: Epistaxis Additional Impressions: HTN (hypertension) Qualified Codes: I10 - Essential (primary) hypertension Grief reaction ER Course Patient presents with nosebleed and hypertension and grief. Differential includes nosebleed, coagulopathy, renal failure, uncontrolled hypertension, David's granulomatosis amongst others. Patient will be evaluated with labs chest x-ray and EKG. 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 She's not bleeding at this time. She'll be given Tylenol, lisinopril and also bacitracin topically. EKG without injury. Chest x-ray no infiltrates normal. White count and hemoglobin minimally low. Normal creatinine with elevated BUN. Coags normal. After observation there is no bleeding. Patient's blood pressure was improved. Patient felt better although still had a strange feeling. Neurologic exam normal. Discussed treatment plan with the patient. Patient stable for outpatient observation and treatment. Laboratory Tests Test 05/28/18 09:25 05/28/18 09:30 White Blood Count 9.4 K/UL (4.8-10.8) Red Blood Count 4.01 M/UL (4.20-5.40) L Hemoglobin 12.1 G/DL (12.0-16.0) Hematocrit 34.8 % (37.0-47.0) L Mean Corpuscular Volume 87 FL (80-99) Mean Corpuscular Hemoglobin 30.1 PG (27.0-31.0) Mean Corpuscular Hemoglobin Concent 34.8 G/DL (32.0-36.0) Red Cell Distribution Width 11.8 % (11.6-14.8) Platelet Count 358 K/UL (150-450) Mean Platelet Volume 5.5 FL (6.5-10.1) L Neutrophils (%) (Auto) 46.7 % (45.0-75.0) Lymphocytes (%) (Auto) 30.7 % (20.0-45.0) Monocytes (%) (Auto) 14.2 % (1.0-10.0) H Eosinophils (%) (Auto) 3.3 % (0.0-3.0) H Basophils (%) (Auto) 5.1 % (0.0-2.0) H Prothrombin Time 9.2 SEC (9.30-11.50) L Prothrombin Time INR 0.9 (0.9-1.1) PTT 27 SEC (23-33) Sodium Level 138 MMOL/L (136-145) Potassium Level 4.8 MMOL/L (3.5-5.1) Chloride Level 106 MMOL/L (98-107) Carbon Dioxide Level 20 MMOL/L (21-32) L Anion Gap 12 mmol/L (5-15) Blood Urea Nitrogen 21 mg/dL (7-18) H Creatinine 1.0 MG/DL (0.55-1.30) Estimate Glomerular Filtration Rate > 60 mL/min (>60) Glucose Level 126 MG/DL (74-106) H Calcium Level 8.3 MG/DL (8.5-10.1) L Total Bilirubin 0.4 MG/DL (0.2-1.0) Aspartate Amino Transferase (AST) 39 U/L (15-37) H Alanine Aminotransferase (ALT) 48 U/L (12-78) Alkaline Phosphatase 120 U/L (46-116) H Total Creatine Kinase 161 U/L (26-308) Troponin I 0.000 ng/mL (0.000-0.056) Pro-B-Type Natriuretic Peptide 40 pg/mL (0-125) Total Protein 6.2 G/DL (6.4-8.2) L Albumin 2.3 G/DL (3.4-5.0) L Globulin 3.9 g/dL Albumin/Globulin Ratio 0.6 (1.0-2.7) L Urine Color Pale yellow Urine Appearance Clear Urine pH 5 (4.5-8.0) Urine Specific [place] 1.020 (1.005-1.035) Urine Protein 4+ (NEGATIVE) H Urine Glucose (UA) Negative (NEGATIVE) Urine Ketones Negative (NEGATIVE) Urine Blood 3+ (NEGATIVE) H Urine Nitrite Negative (NEGATIVE) Urine Bilirubin Negative (NEGATIVE) Urine Urobilinogen Normal MG/DL (0.0-1.0) Urine Leukocyte Esterase Negative (NEGATIVE) Urine RBC 2-4 /HPF (0 - 2) H Urine WBC 0-2 /HPF (0 - 2) Urine Squamous Epithelial Cells Few /LPF (NONE/OCC) Urine Bacteria Few /HPF (NONE) Urine HCG, Qualitative Negative (NEGATIVE) EKG Diagnostic Results Rate: normal Rhythm: NSR ST Segments: no acute changes Rhythm Strip Diag. Results EP Interpretation: yes Rhythm: NSR, no PVC's, no ectopy Chest X-Ray Diagnostic Results Chest X-Ray Diagnostic Results : Chest X-Ray Ordered: Yes # of Views/Limited/Complete: 1 View Indication: Other EP Interpretation: Yes Interpretation: no consolidation, no effusion, no pneumothorax Impression: No acute disease Electronically Signed by: Electronically signed by Teodoro Chao MD Last Vital Signs Date Time Temp Pulse Resp B/P (MAP) Pulse Ox O2 Delivery O2 Flow Rate FiO2 05/28/18 13:22 98.1 74 16 162/97 100 Room Air Status: improved Disposition: HOME, SELF-CARE Condition: Improved Scripts Bacitracin (Bacitracin) 28.4 Gm Oint...g. 1 APPLIC TOPIC BID, #10 GM Prov: Teodoro Chao MD 05/28/18 Acetaminophen (Tylenol) 325 Mg Tablet 650 MG ORAL Q6H PRN for Prn Pain/Headache/Temp > 101, #20 TAB 0 Refills Prov: Teodoro Chao MD 05/28/18 Lorazepam* (ATIVAN*) 0.5 Mg Tablet 0.5 MG ORAL THREE TIMES A DAY, #4 TAB Prov: Teodoro Chao MD 05/28/18 Lisinopril (LISINOPRIL*) 20 Mg Tablet 20 MG ORAL DAILY, #30 TAB Prov: Teodoro Chao MD 05/28/18 Referrals: [facility],REFERR[facility] (PCP) Teodoro Chao MD May 28, 2018 10:27
[2018-05-28] MEDS ORDERED: Lisinopril 10mg tab ORAL ONE (10:30)
[2018-05-28] MEDS ORDERED: Bacitracin Oint UD TOPIC ONE (10:30)
--- NOTE | 2018-05-28 10:41 | NUR ---
ED Nurse Note: Blood and urine collected and sent to lab.
[2018-05-28 10:55] LABS: APPEARANCE,URINE CLEAR; BILIRUBIN, URINE NEGATIVE (NEGATIVE); COLOR,URINE PALE YELLOW; GLUCOSE, URINE (UA) NEGATIVE (NEGATIVE); KETONES,URINE NEGATIVE (NEGATIVE); LEUKOCYTE ESTERASE ,URINE NEGATIVE (NEGATIVE); NITRITE,URINE NEGATIVE (NEGATIVE); PH,URINE 5 (4.5-8.0); PROTEIN,URINE 4+ (NEGATIVE); UROBILINOGEN,URINE NORMAL MG/DL (0.0-1.0)
[2018-05-28 10:55] LABS: BASOPHILS % (AUTO) 5.1 % (0.0-2.0); EOSINOPHILS % (AUTO) 3.3 % (0.0-3.0); HEMATOCRIT 34.8 % (37.0-47.0); HEMOGLOBIN 12.1 G/DL (12.0-16.0); LYMPHOCYTES % (AUTO) 30.7 % (20.0-45.0); MEAN CORPUSCULAR VOLUME 87 FL (80-99); MONOCYTES % (AUTO) 14.2 % (1.0-10.0); NEUTROPHILS % (AUTO) 46.7 % (45.0-75.0); PLATELET COUNT 358 K/UL (150-450); RED BLOOD COUNT 4.01 M/UL (4.20-5.40); RED CELL DISTRIBUTION WIDTH 11.8 % (11.6-14.8); WHITE BLOOD COUNT 9.4 K/UL (4.8-10.8)
[2018-05-28 11:07] LABS: INR 0.9 (0.9-1.1)
[2018-05-28 11:10] LABS: ANION GAP 12 mmol/L (5-15); BLOOD UREA NITROGEN 21 mg/dL (7-18); CALCIUM 8.3 MG/DL (8.5-10.1); CARBON DIOXIDE 20 MMOL/L (21-32); CHLORIDE 106 MMOL/L (98-107); POTASSIUM 4.8 MMOL/L (3.5-5.1); SODIUM 138 MMOL/L (136-145)
[2018-05-28 11:23] LABS: ALANINE AMINOTRANSFERASE 48 U/L (12-78); ALBUMIN 2.3 G/DL (3.4-5.0); ALBUMIN/GLOBULIN RATIO 0.6 (1.0-2.7); ALKALINE PHOSPHATASE 120 U/L (46-116); ASPARTATE AMINO TRANSFERASE 39 U/L (15-37); BILIRUBIN,TOTAL 0.4 MG/DL (0.2-1.0); CREATINE KINASE 161 U/L (26-308)
--- NOTE | 2018-05-28 12:05 | Diagnostic Imaging Report ---
Indication: Cough Technique: One view of the chest Comparison: 05/23/2016 Findings: Lungs and pleural spaces are clear. The heart size is normal. The aorta is somewhat tortuous. No significant interim change Impression: No acute process
[2018-05-28 12:39] VITALS: BP 162/97
[2018-05-28] MEDS ORDERED: LISINOPRIL20 MG ORAL (13:19)
[2018-05-28] MEDS ORDERED: BACITRACIN15 GM TOPIC (13:19)
[2018-05-28] MEDS ORDERED: ATIVAN0.5 MG ORAL (13:19)
[2018-05-28] MEDS ORDERED: TYLENOL325 MG ORAL (13:19)
[2018-05-28 13:22] VITALS: BP 162/97
--- NOTE | 2018-05-28 13:22 | NUR ---
ER DISCHARGE NOTE: Patient is cleared to be discharged per ERMD, pt is aox4, on room air, with stable vital signs. pt was given dc and prescription instructions, pt was able to verbalize understanding, pt id band and iv site removed without complications. pt is able to ambulate with steady gait. pt took all belongings.
--- NOTE | 2018-05-29 17:03 | Cardiology Report ---
APPROVED REPORT EKG Measurement Heart [id number] Normal sinus rhythm with sinus arrhythmia Normal ECG
== END 2018-05-28 13:22 | disposition home or self-care (01) ==
LOC: EMR 10:17
DX: R04.0 Epistaxis (principal); I10 Essential (primary) hypertension; F43.20 Adjustment disorder, unspecified; E78.00 Pure hypercholesterolemia, unspecified; N28.9 Disorder of kidney and ureter, unspecified; R05 Cough
CPT/HCPCS: 36415; 71045; 80053; 81003; 81025; 82550; 83880; 84484; 85025; 85610; 85730; 93005; 99284

== ENCOUNTER 2019-02-10 12:04 | Emergency (ER) | payer MEDICAID ==
[~2019-02-10] VITALS: Ht 157.5 cm; Wt 61.2 kg
[~2019-02-10 12:04] MED LIST changes: +ATIVAN0.5 MG ORAL; +BACITRACIN15 GM TOPIC; +TYLENOL325 MG ORAL
[2019-02-10 12:15] VITALS: BP 135/82
[2019-02-10] MEDS ORDERED: FISH OIL CAP1000 MG ORAL (12:15)
[2019-02-10] MEDS ORDERED: IRON325 M1 PO (12:15)
--- NOTE | 2019-02-10 12:15 | NUR ---
ED Nurse Note: Patient walked into ER from home d/t pelvic pain for the last 3-4 days. Patient aao x 4 and ambulatory. Patient calm and cooperative. No acute distress noted.
[2019-02-10] MEDS ORDERED: Morphine Sulfate 2mg/ml Inj(IV/IM USE ONLY) IVP ONE (12:45)
[2019-02-10] MEDS ORDERED: Omnipaque-300 100ml vial INJ PRN (12:45)
[2019-02-10 13:02] LABS: APPEARANCE,URINE CLEAR; BILIRUBIN, URINE NEGATIVE (NEGATIVE); COLOR,URINE PALE YELLOW; GLUCOSE, URINE (UA) NEGATIVE (NEGATIVE); KETONES,URINE NEGATIVE (NEGATIVE); LEUKOCYTE ESTERASE ,URINE 2+ (NEGATIVE); NITRITE,URINE NEGATIVE (NEGATIVE); PH,URINE 5 (4.5-8.0); PROTEIN,URINE 4+ (NEGATIVE); UROBILINOGEN,URINE NORMAL MG/DL (0.0-1.0)
[2019-02-10 13:21] LABS: HEMATOCRIT 27.5 % (37.0-47.0); HEMOGLOBIN 9.3 G/DL (12.0-16.0); MEAN CORPUSCULAR VOLUME 86 FL (80-99); PLATELET COUNT 248 K/UL (150-450); RED BLOOD COUNT 3.19 M/UL (4.20-5.40); WHITE BLOOD COUNT 11.1 K/UL (4.8-10.8)
[2019-02-10 13:31] LABS: INR 0.9 (0.9-1.1)
[2019-02-10 13:38] LABS: ANION GAP 6 mmol/L (5-15); BLOOD UREA NITROGEN 29 mg/dL (7-18); CALCIUM 8.4 MG/DL (8.5-10.1); CARBON DIOXIDE 26 MMOL/L (21-32); CHLORIDE 107 MMOL/L (98-107); CREATININE 1.5 MG/DL (0.55-1.30); POTASSIUM 4.1 MMOL/L (3.5-5.1); SODIUM 139 MMOL/L (136-145)
[2019-02-10 13:41] LABS: CREATINE KINASE 83 U/L (26-308)
[2019-02-10 13:46] LABS: ALANINE AMINOTRANSFERASE 32 U/L (12-78); ALBUMIN 3.2 G/DL (3.4-5.0); ALBUMIN/GLOBULIN RATIO 0.8 (1.0-2.7); ALKALINE PHOSPHATASE 124 U/L (46-116); ASPARTATE AMINO TRANSFERASE 19 U/L (15-37); BILIRUBIN,TOTAL 0.2 MG/DL (0.2-1.0)
--- NOTE | 2019-02-10 13:56 | NUR ---
ED Nurse Note: ERMD informed regarding creatinine level and if okay to go for CT with contrast. Per ERMD, inform PA to speak to ERMD. PA was informed.
[2019-02-10] MEDS ORDERED: cefTRIAXone 1 GM in NS 55 ML IVPB ONE (14:00)
--- NOTE | 2019-02-10 14:23 | Emergency Room Report ---
History of Present Illness General Chief Complaint: Pelvic Pain Source: Patient Present Illness HPI 33-year-old female with history of CKD currently under the care of investigative assistant as well as history of arthritis here complaining of 2 days of urinary frequency and dysuria as well as left flank pain however denies pain radiation to pubic area. Denies hematuria, vaginal discharge, fever and chills, nausea vomiting at this time. Denies diffuse abdominal pain, reports that she did feel a little nauseated this morning, last menstrual period was 2 weeks ago and regular. Patient elicits minimal tenderness to palpation the left flank. Has not taken medication other than Tylenol for pain. Patient reports that she cannot take any ibuprofen due to her CKD. Patient is in no apparent distress. Has stable vital signs. Denies all other associated symptoms. Allergies: Coded Allergies: PENICILLINS (Verified Allergy, Unknown, Rash, 05/24/16) 05/24/16: tolerates cefepime/ceftriaxone Patient History Past Medical History: see triage record Past Surgical History: unable to obtain Pertinent Family History: none Last Menstrual Period: 12/2018 Now: No - WITH IUD Immunizations: UTD Reviewed Nursing Documentation: PMH: Agreed; PSxH: Agreed Nursing Documentation-PMH Past Medical History: No History, Except For Hx Cardiac Problems: Yes Hx Hypertension: Yes Hx Pacemaker: No Hx Asthma: No Hx COPD: No Hx Diabetes: No Hx Cancer: No Hx Gastrointestinal Problems: Yes - kidney disease Hx Dialysis: No - UTI in 2001 Hx Neurological Problems: No Hx Cerebrovascular Accident: No Hx Seizures: No Review of Systems All Other Systems: negative except mentioned in HPI Physical Exam Vital Signs Date Time Temp Pulse Resp B/P (MAP) Pulse Ox O2 Delivery O2 Flow Rate FiO2 02/10/19 12:09 99.5 103 18 133/84 (100) 99 Room Air Sp02 EP Interpretation: reviewed, normal General Appearance: no apparent distress, alert, GCS 15, non-toxic Head: normocephalic, atraumatic Eyes: bilateral eye normal inspection, bilateral eye PERRL ENT: hearing grossly normal, normal pharynx, no angioedema, normal voice Neck: full range of motion, supple, supple/symm/no masses Respiratory: chest non-tender, lungs clear, normal breath sounds, no rhonchi, no respiratory distress, no retraction, no wheezing, speaking full sentences Cardiovascular #1: normal inspection, regular rate, rhythm, no edema, no gallop , no murmur Gastrointestinal: soft, no mass, no organomegaly, no peritonitis, no bruit, non -distended, no guarding, no hernia, no pulsatile mass, no rebound Genitourinary: CVA tenderness (L) Musculoskeletal: back normal, normal range of motion, gait/station normal, non- tender Neurologic: alert, motor strength/tone normal, oriented x3, sensory intact, responsive, speech normal Psychiatric: judgement/insight normal, memory normal, mood/affect normal, no suicidal/homicidal ideation Skin: no rash Lymphatic: no adenopathy Medical Decision Making PA Attestation All my diagnosis and treatment plans were reviewed ad discussed with my supervising physician Dr. Reyes Diagnostic Impression: Primary Impression: Pyelonephritis ER Course 33-year-old female with history of CKD currently under the care of investigative assistant as well as history of arthritis here complaining of 2 days of urinary frequency and dysuria as well as left flank pain however denies pain radiation to pubic area. Denies hematuria, vaginal discharge, fever and chills, nausea vomiting at this time. Denies diffuse abdominal pain, reports that she did feel a little nauseated this morning, last menstrual period was 2 weeks ago and regular. Patient elicits minimal tenderness to palpation the left flank. Has not taken medication other than Tylenol for pain. Patient reports that she cannot take any ibuprofen due to her CKD. Patient is in no apparent distress. Has stable vital signs. Denies all other associated symptoms. Ddx considered but are not limited to: UTI, pyelonephritis, urinary incontinence , prolapsed bladder Vital signs: are WNL, pt. is afebrile H&PE are most consistent with: Stable pyelonephritis ORDERS: UA, CMP, urine test, originally ordered CT scan of the abdomen however after discussing with Dr. Reyes, and elevated BUN/creatinine the patient and that due to lack of contrast not being accurate for a clear image. it was decided not to do the CT scan and treat for pyelonephritis after discussing with my supervising physician Dr. Reyes ED INTERVENTIONS: NS bolus, morphine, zofran, rocephin DISCHARGE: At this time pt. is stable for d/c to home. Will provide printed patient care instructions, and any necessary prescriptions. Care plan and follow up instructions have been discussed with the patient prior to discharge. Patient to follow-up with her primary care physician, if worsening symptoms return to the emergency room Last Vital Signs Date Time Temp Pulse Resp B/P (MAP) Pulse Ox O2 Delivery O2 Flow Rate FiO2 02/10/19 13:23 99.5 02/10/19 12:15 78 18 135/82 99 Room Air Disposition: HOME, SELF-CARE Condition: Stable Scripts Acetaminophen* (ACETAMINOPHEN 325MG TABLET*) 325 Mg Tablet 650 MG ORAL Q6H PRN for For Pain, #30 TAB Prov: Ida Carvajal 02/10/19 Acetaminophen With Codeine (T#3) (TYLENOL #3 TAB*) Y Tab 1 TAB ORAL Q8HR PRN for For Pain for 3 Days, #10 TAB Prov: Ida Carvajal 02/10/19 Cephalexin* (KEFLEX*) 500 Mg Capsule 500 MG ORAL EVERY 6 HOURS for 10 Days, #40 CAP Prov: Ida Carvajal 02/10/19 Referrals: NON PHYSICIAN (PCP) Patient Instructions: Pyelonephritis, Adult, [id number] Additional Instructions: Take medication as directed, follow-up with your primary care provider and your investigative assistant, if worsening symptoms return to the emergency room Ida Carvajal Feb 10, 2019 14:23
[2019-02-10] MEDS ORDERED: CEPHALEXIN500 MG ORAL (14:26)
[2019-02-10] MEDS ORDERED: ACETAMINOPHEN-1 EAC1 ORAL (14:26)
[2019-02-10] MEDS ORDERED: ACETAMINOPHEN325 M1 ORAL (14:26)
[2019-02-10 14:55] VITALS: BP 132/85
--- NOTE | 2019-02-10 14:55 | NUR ---
ER DISCHARGE NOTE: Patient cleared for discharge per ERMD. Patient was given discharge instructions and prescriptions, verbalized understanding. Patient aao x 4 and ambulatory. Patient no c/o pain. Patient IV removed with no complications. Patient ID band removed. Patient stable upon discharge.
== END 2019-02-10 14:55 | disposition home or self-care (01) ==
LOC: EMR 12:45
DX: N12 Tubulo-interstitial nephritis, not specified as acute or chronic (principal); M19.90 Unspecified osteoarthritis, unspecified site; Z88.0 Allergy status to penicillin; I12.9 Hypertensive chronic kidney disease with stage 1 through stage 4 chronic kidney disease, or unspecified chronic kidney disease; N18.9 Chronic kidney disease, unspecified
CPT/HCPCS: 36415; 80053; 81003; 81025; 82550; 85007; 85025; 85610; 85730; 86850; 86900; 86901; 87086; 87181; 96361; 96365; 96375; J0696; J2270; J2405; J7030; Z7502; 99284

== ENCOUNTER 2019-05-17 16:30 | Emergency (ER) | payer MEDICAID ==
[~2019-05-17] VITALS: Ht 160 cm; Wt 63.5 kg
[~2019-05-17 16:30] MED LIST changes: +ACETAMINOPHEN-1 EAC1 ORAL; +ACETAMINOPHEN325 M1 ORAL; +CEPHALEXIN500 MG ORAL; +FISH OIL CAP1000 MG ORAL; +IRON325 M1 PO
[2019-05-17 16:35] VITALS: BP 133/90
--- NOTE | 2019-05-17 16:40 | NUR ---
ED Nurse Note: patient walked into ED from home c/o left flank pain and urinary urgency since last night. patient reports history of glomerulonephritis. patient is alert awake x4 ambulatory, breathing unlabored and even.
--- NOTE | 2019-05-17 16:57 | Emergency Room Report ---
History of Present Illness General Chief Complaint: Back Pain-No Injury Source: Patient Present Illness HPI 33-year-old female presents with left flank pain that started last night, constant, she feels a sharp squeezing pain no aggravating relieving factors severity is moderate, constant, no fevers no chills she does endorse some suprapubic pressure and difficulty urinating, no vaginal discharge patient presents for evaluation she has a history of C3, viral nephritis additionally patient also reports CKD as well as a mild allergy to penicillin where she has a rash Allergies: Coded Allergies: PENICILLINS (Verified Allergy, Unknown, Rash, 05/24/16) 05/24/16: tolerates cefepime/ceftriaxone Patient History Past Medical History: see triage record Now: No Reviewed Nursing Documentation: PMH: Agreed; PSxH: Agreed Nursing Documentation-PMH Past Medical History: No History, Except For Hx Cardiac Problems: Yes Hx Hypertension: Yes Hx Pacemaker: No Hx Asthma: No Hx COPD: No Hx Diabetes: No Hx Cancer: No Hx Gastrointestinal Problems: Yes - kidney disease Hx Dialysis: No - UTI in 2001 Hx Neurological Problems: No Hx Cerebrovascular Accident: No Hx Seizures: No Review of Systems All Other Systems: negative except mentioned in HPI Physical Exam Vital Signs Date Time Temp Pulse Resp B/P (MAP) Pulse Ox O2 Delivery O2 Flow Rate FiO2 05/17/19 16:35 98.4 86 18 133/90 99 Room Air Sp02 EP Interpretation: reviewed, normal General Appearance: well appearing, no apparent distress, alert Head: normocephalic, atraumatic Eyes: bilateral eye PERRL, bilateral eye EOMI ENT: uvula midline, moist mucus membranes Neck: supple, thyroid normal, supple/symm/no masses Respiratory: lungs clear, no respiratory distress, no retraction, no accessory muscle use Cardiovascular #1: normal peripheral pulses, regular rate, rhythm, no edema, no gallop, no murmur Gastrointestinal: non tender, soft, no guarding, no rebound Musculoskeletal: normal inspection Neurologic: alert, oriented x3 Psychiatric: mood/affect normal Skin: no rash, warm/dry Medical Decision Making Diagnostic Impression: Primary Impression: UTI (urinary tract infection) Qualified Codes: N30.01 - Acute cystitis with hematuria ER Course 33-year-old female presents with suprapubic fullness, and left flank pain differential diagnosis includes pyelonephritis, UTI, referred pain, patient with no CVA flank tenderness, CT negative, patient with some hematuria as well as some bacteria in the urine will provide patient with ceftriaxone here, additionally will treat patient with Bactrim for 5 days disposition home with return precautions follow-up with PCP Laboratory Tests Test 05/17/19 16:17 05/17/19 16:47 White Blood Count 12.0 K/UL (4.8-10.8) H Red Blood Count 3.74 M/UL (4.20-5.40) L Hemoglobin 10.4 G/DL (12.0-16.0) L Hematocrit 31.3 % (37.0-47.0) L Mean Corpuscular Volume 84 FL (80-99) Mean Corpuscular Hemoglobin 27.9 PG (27.0-31.0) Mean Corpuscular Hemoglobin Concent 33.2 G/DL (32.0-36.0) Red Cell Distribution Width 13.5 % (11.6-14.8) Platelet Count 293 K/UL (150-450) Mean Platelet Volume 6.2 FL (6.5-10.1) L Neutrophils (%) (Auto) 50.0 % (45.0-75.0) Lymphocytes (%) (Auto) 23.9 % (20.0-45.0) Monocytes (%) (Auto) 19.3 % (1.0-10.0) H Eosinophils (%) (Auto) 2.8 % (0.0-3.0) Basophils (%) (Auto) 4.1 % (0.0-2.0) H Sodium Level 143 MMOL/L (136-145) Potassium Level 3.8 MMOL/L (3.5-5.1) Chloride Level 107 MMOL/L (98-107) Carbon Dioxide Level 26 MMOL/L (21-32) Anion Gap 10 mmol/L (5-15) Blood Urea Nitrogen 29 mg/dL (7-18) H Creatinine 1.4 MG/DL (0.55-1.30) H Estimate Glomerular Filtration Rate 43.0 mL/min (>60) Glucose Level 135 MG/DL (74-106) H Calcium Level 9.1 MG/DL (8.5-10.1) Total Bilirubin 0.2 MG/DL (0.2-1.0) Aspartate Amino Transferase (AST) 15 U/L (15-37) Alanine Aminotransferase (ALT) 18 U/L (12-78) Alkaline Phosphatase 120 U/L (46-116) H Total Protein 7.3 G/DL (6.4-8.2) Albumin 3.3 G/DL (3.4-5.0) L Globulin 4.0 g/dL Albumin/Globulin Ratio 0.8 (1.0-2.7) L Lipase 146 U/L (73-393) Urine Color Pale yellow Urine Appearance Clear Urine pH 5 (4.5-8.0) Urine Specific [place] 1.015 (1.005-1.035) Urine Protein 3+ (NEGATIVE) H Urine Glucose (UA) Negative (NEGATIVE) Urine Ketones Negative (NEGATIVE) Urine Blood 2+ (NEGATIVE) H Urine Nitrite Negative (NEGATIVE) Urine Bilirubin Negative (NEGATIVE) Urine Urobilinogen Normal MG/DL (0.0-1.0) Urine Leukocyte Esterase Negative (NEGATIVE) Urine RBC 2-4 /HPF (0 - 2) H Urine WBC 0-2 /HPF (0 - 2) Urine Squamous Epithelial Cells Few /LPF (NONE/OCC) Urine Bacteria Few /HPF (NONE) Urine HCG, Qualitative Negative (NEGATIVE) CT/MRI/US Diagnostic Results CT/MRI/US Diagnostic Results : Impression Procedure: CT Abdomen Pelvis WO Contrast Indication: Left flank pain Technique: Spiral acquisitions obtained through the abdomen and pelvis. No oral contrast utilized, per emergency room physician request No IV contrast utilized , per referring physician request.. Multiplanar reconstructions were generated. Total dose length product 263 mGycm. CTDIvol(s) 5 mGy. Dose reduction achieved using automated exposure control Comparison: 05/23/2016 Findings: No renal or ureteral calculi, hydronephrosis, or hydroureter. There is a calcification in the lower pole of the right kidney but this is probably parenchymal. This was also evident previously. No significant perinephric fat stranding. Lack of IV contrast limits assessment of the renal parenchyma. No gross renal parenchymal mass or cyst demonstrated. Lack of IV contrast limits assessment of the other solid organs. The liver, gallbladder, bile ducts, pancreas, spleen, adrenals are all unremarkable. The uterus contains an intrauterine device. The ovaries are unremarkable. No pelvic mass or adenopathy. Unremarkable bladder. Previously reported right lower quadrant mesenteric nodes are less striking than on the previous exam Lack of enteric contrast limits assessment of the GI tract. The appendix is normal. Are a few small colonic diverticula. No evidence of diverticulitis. No free or loculated intraperitoneal gas or fluid is evident. There is a tiny umbilical hernia containing fat again demonstrated. The distal esophagus, stomach, duodenum are unremarkable. The lung bases demonstrate basilar posterior dependent atelectatic changes. The bones are unremarkable. Impression: No definite acute abnormality Colonic diverticulosis. No evidence of diverticulitis Incidental findings as noted, including posterior dependent basilar pulmonary atelectatic changes, tiny fat-containing umbilical hernia, intrauterine device The CT scanner at [facility] is accredited by the [employer] and the scans are performed using protocols designed to limit radiation exposure to as low as reasonably achievable to attain images of sufficient resolution adequate for diagnostic evaluation. Dictated By: Perry Dos Santos MD Electronically Signed By: Perry Dos Santos MD Signed Date/Time 05/17/19 1673 CC: Silvio Dickinson MD Last Vital Signs Date Time Temp Pulse Resp B/P (MAP) Pulse Ox O2 Delivery O2 Flow Rate FiO2 05/17/19 16:35 98.4 86 18 133/90 (104) 99 Room Air Disposition: HOME, SELF-CARE Condition: Stable Scripts Trimethoprim/Sulfamethoxazole 160/800* (BACTRIM DS TABLET*) 1 Each Tablet 1 TAB ORAL Q12H, #10 TAB 0 Refills Prov: Silvio Dickinson MD 05/17/19 Referrals: [facility]. [facility] Patient Instructions: Urinary Tract Infection, [id number] Additional Instructions: The patient was provided with discharge instructions, notified to follow-up with a primary care doctor and or specialist in the next 24-48 hours, and to return to the ED if they have worsening of their symptoms. Please note that this report is being documented using Clean PET technology. This can lead to erroneous entry secondary to incorrect interpretation by the dictating instrument. Silvio Dickinson MD May 17, 2019 16:57
[2019-05-17] MEDS ORDERED: Morphine Sulfate 4mg/ml Inj (IV USE ONLY) IVP ONE (17:00)
[2019-05-17] MEDS ORDERED: Acetaminophen 500mg (ES) tab ORAL ONE (17:00)
[2019-05-17 17:13] LABS: APPEARANCE,URINE CLEAR; BILIRUBIN, URINE NEGATIVE (NEGATIVE); COLOR,URINE PALE YELLOW; GLUCOSE, URINE (UA) NEGATIVE (NEGATIVE); KETONES,URINE NEGATIVE (NEGATIVE); LEUKOCYTE ESTERASE ,URINE NEGATIVE (NEGATIVE); NITRITE,URINE NEGATIVE (NEGATIVE); PH,URINE 5 (4.5-8.0); PROTEIN,URINE 3+ (NEGATIVE); UROBILINOGEN,URINE NORMAL MG/DL (0.0-1.0)
[2019-05-17 17:21] LABS: ANION GAP 10 mmol/L (5-15); BLOOD UREA NITROGEN 29 mg/dL (7-18); CALCIUM 9.1 MG/DL (8.5-10.1); CARBON DIOXIDE 26 MMOL/L (21-32); CHLORIDE 107 MMOL/L (98-107); CREATININE 1.4 MG/DL (0.55-1.30); POTASSIUM 3.8 MMOL/L (3.5-5.1); SODIUM 143 MMOL/L (136-145)
[2019-05-17 17:23] LABS: BASOPHILS % (AUTO) 4.1 % (0.0-2.0); EOSINOPHILS % (AUTO) 2.8 % (0.0-3.0); HEMATOCRIT 31.3 % (37.0-47.0); HEMOGLOBIN 10.4 G/DL (12.0-16.0); LYMPHOCYTES % (AUTO) 23.9 % (20.0-45.0); MEAN CORPUSCULAR VOLUME 84 FL (80-99); MONOCYTES % (AUTO) 19.3 % (1.0-10.0); PLATELET COUNT 293 K/UL (150-450); RED BLOOD COUNT 3.74 M/UL (4.20-5.40); RED CELL DISTRIBUTION WIDTH 13.5 % (11.6-14.8)
[2019-05-17 17:25] LABS: ALANINE AMINOTRANSFERASE 18 U/L (12-78); ALBUMIN 3.3 G/DL (3.4-5.0); ALBUMIN/GLOBULIN RATIO 0.8 (1.0-2.7); ALKALINE PHOSPHATASE 120 U/L (46-116); ASPARTATE AMINO TRANSFERASE 15 U/L (15-37); BILIRUBIN,TOTAL 0.2 MG/DL (0.2-1.0)
--- NOTE | 2019-05-17 18:05 | Diagnostic Imaging Report ---
Indication: Left flank pain Technique: Spiral acquisitions obtained through the abdomen and pelvis. No oral contrast utilized, per emergency room physician request No IV contrast utilized, per referring physician request.. Multiplanar reconstructions were generated. Total dose length product 263 mGycm. CTDIvol(s) 5 mGy. Dose reduction achieved using automated exposure control Comparison: 05/23/2016 Findings: No renal or ureteral calculi, hydronephrosis, or hydroureter. There is a calcification in the lower pole of the right kidney but this is probably parenchymal. This was also evident previously. No significant perinephric fat stranding. Lack of IV contrast limits assessment of the renal parenchyma. No gross renal parenchymal mass or cyst demonstrated. Lack of IV contrast limits assessment of the other solid organs. The liver, gallbladder, bile ducts, pancreas, spleen, adrenals are all unremarkable. The uterus contains an intrauterine device. The ovaries are unremarkable. No pelvic mass or adenopathy. Unremarkable bladder. Previously reported right lower quadrant mesenteric nodes are less striking than on the previous exam Lack of enteric contrast limits assessment of the GI tract. The appendix is normal. Are a few small colonic diverticula. No evidence of diverticulitis. No free or loculated intraperitoneal gas or fluid is evident. There is a tiny umbilical hernia containing fat again demonstrated. The distal esophagus, stomach, duodenum are unremarkable. The lung bases demonstrate basilar posterior dependent atelectatic changes. The bones are unremarkable. Impression: No definite acute abnormality Colonic diverticulosis. No evidence of diverticulitis Incidental findings as noted, including posterior dependent basilar pulmonary atelectatic changes, tiny fat-containing umbilical hernia, intrauterine device The CT scanner at [facility] is accredited by the [employer] and the scans are performed using protocols designed to limit radiation exposure to as low as reasonably achievable to attain images of sufficient resolution adequate for diagnostic evaluation.
[2019-05-17] MEDS ORDERED: cefTRIAXone 1 GM in NS 55 ML IVPB ONE (18:30)
[2019-05-17] MEDS ORDERED: BACTRIM DS TAB1 EAC1 ORAL (18:48)
[2019-05-17 18:52] VITALS: BP 134/82
--- NOTE | 2019-05-17 18:52 | NUR ---
ER DISCHARGE NOTE: Patient is cleared to be discharged per ERMD DR SANTAMARIA, pt is aox4, on room air, with stable vital signs. pt was given dc and prescription instructions, pt was able to verbalize understanding, pt id band and iv site removed without complications. pt is able to ambulate with steady gait. pt took all belongings.
[2019-05-17 18:59] VITALS: BP 134/82
== END 2019-05-17 19:02 | disposition home or self-care (01) ==
LOC: EMR 16:59
DX: N30.01 Acute cystitis with hematuria (principal); Z88.0 Allergy status to penicillin; I11.9 Hypertensive heart disease without heart failure; N18.9 Chronic kidney disease, unspecified
CPT/HCPCS: 36415; 74176; 80053; 81003; 81025; 83690; 85025; 96361; 96365; 96375; J0696; J2270; J2405; J7030; Z7502; 99284

== ENCOUNTER 2019-12-29 14:19 | Emergency (ER) | payer MEDICAID ==
[~2019-12-29] VITALS: Ht 157.5 cm; Wt 59.0 kg
[~2019-12-29 14:19] MED LIST changes: +BACTRIM DS TAB1 EAC1 ORAL
[2019-12-29 14:30] VITALS: BP 132/88
--- NOTE | 2019-12-29 14:30 | NUR ---
ED Nurse Note: Pt walked in from home c/o lower back pain radiating to bilat legs x 3 days. Pt reports fever last night around 100.0 F. Pt took tylenol today around 1100. Pt also reporting itchy throat. Respirations even and unlabored on room air. Vitals stable as documented. A+Ox4, speaking in complete sentences.
--- NOTE | 2019-12-29 14:45 | NUR ---
ED Nurse urine collected and sent to lab
[2019-12-29 15:00] LABS: APPEARANCE,URINE CLEAR; BILIRUBIN, URINE NEGATIVE (NEGATIVE); COLOR,URINE PALE YELLOW; GLUCOSE, URINE (UA) NEGATIVE (NEGATIVE); KETONES,URINE NEGATIVE (NEGATIVE); LEUKOCYTE ESTERASE ,URINE NEGATIVE (NEGATIVE); NITRITE,URINE NEGATIVE (NEGATIVE); PH,URINE 7 (4.5-8.0); PROTEIN,URINE 3+ (NEGATIVE); UROBILINOGEN,URINE NORMAL MG/DL (0.0-1.0)
--- NOTE | 2019-12-29 15:14 | Emergency Room Report ---
History of Present Illness General Chief Complaint: Back Pain-No Injury Present Illness HPI 34 YO female presents to the ED c/o 09/26 in severity lower abdominal pain with radiation to the right lower back with fevers. Pt. reports hx of frequent UTI's and pyelonephritis. Pt. denies trauma or fall. She denies nausea, vomiting, constipation or diarrhea. She denies . Pt. reports urinary frequency as well. Pt. reports several days prior to onset of her symptoms she noted having sore achy muscles in the bilateral thighs. She denies vaginal d/c. 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 Patient History Past Medical History: see triage record Past Surgical History: none Pertinent Family History: none Last Menstrual Period: Nov 2019 Now: No Reviewed Nursing Documentation: PMH: Agreed; PSxH: Agreed Nursing Documentation-PMH Hx Cardiac Problems: Yes - hyperlipidemia Hx Hypertension: Yes Hx Pacemaker: No Hx Asthma: No Hx COPD: No Hx Diabetes: No Hx Cancer: No Hx Gastrointestinal Problems: Yes - kidney disease Hx Dialysis: No Hx Neurological Problems: No Hx Cerebrovascular Accident: No Hx Seizures: No Review of Systems All Other Systems: negative except mentioned in HPI Physical Exam Vital Signs Date Time Temp Pulse Resp B/P (MAP) Pulse Ox O2 Delivery O2 Flow Rate FiO2 12/29/19 14:24 98.8 83 18 137/95 (109) 94 Room Air Sp02 EP Interpretation: reviewed, normal General Appearance: no apparent distress, alert, GCS 15, non-toxic Head: normocephalic, atraumatic Eyes: bilateral eye normal inspection, bilateral eye PERRL ENT: hearing grossly normal, normal voice Neck: full range of motion Respiratory: chest non-tender, lungs clear, normal breath sounds, speaking full sentences Cardiovascular #1: regular rate, rhythm, no edema Gastrointestinal: normal bowel sounds, non tender, soft, no organomegaly, no peritonitis, non-distended, no guarding Rectal: deferred Genitourinary: normal inspection, adnexa normal, bladder normal, CVA tenderness (R) Musculoskeletal: back normal, normal range of motion, gait/station normal, non- tender, tender - Right flank area/musculature, no midline TTP. FROM. Neurologic: alert, motor strength/tone normal, oriented x3, sensory intact, responsive, speech normal Psychiatric: judgement/insight normal Skin: no rash, normal color Lymphatic: no adenopathy Medical Decision Making PA Attestation Dr. Malave is my supervising Physician whom patient management has been discussed with. Diagnostic Impression: Primary Impression: Right flank pain Additional Impression: Abdominal pain Qualified Codes: R10.30 - Lower abdominal pain, unspecified ER Course 34 YO female presents to the ED c/o 09/26 in severity lower abdominal pain with radiation to the right lower back with fevers. Pt. reports hx of frequent UTI's and pyelonephritis. Pt. denies trauma or fall. She denies nausea, vomiting, constipation or diarrhea. She denies . Pt. reports urinary frequency as well. Pt. reports several days prior to onset of her symptoms she noted having sore achy muscles in the bilateral thighs. She denies vaginal d/c. Ddx considered but are not limited to Diverticulitis, acute appy, diarrhea,UC, PUD, GE, pancreatitis, gallstone, kidney stone, pyelonephritis, UTI, ob struction. Vital signs: are WNL, pt. is afebrile H&PE are most consistent with [ ] ORDERS: -CBC, CMP, lipase: WNL - UA: contaminated, no elevation in inflammatory markers. Notable for red blood cells and blood in the urine. pt. not on her cycle. - CT abdomen and pelvis no contrast ED INTERVENTIONS: -- 1000NS --Toradol IV 15mg DISCHARGE: At this time pt. is stable for d/c to home. Will provide printed patient care instructions, and any necessary prescriptions. Care plan and follow up instructions have been discussed with the patient prior to discharge. Labs Test 12/29/19 14:40 12/29/19 15:17 Urine Color Pale yellow Urine Appearance Clear Urine pH 7 (4.5-8.0) Urine Specific [place] 1.005 (1.005-1.035) Urine Protein 3+ (NEGATIVE) Urine Glucose (UA) Negative (NEGATIVE) Urine Ketones Negative (NEGATIVE) Urine Blood 3+ (NEGATIVE) Urine Nitrite Negative (NEGATIVE) Urine Bilirubin Negative (NEGATIVE) Urine Urobilinogen Normal MG/DL (0.0-1.0) Urine Leukocyte Esterase Negative (NEGATIVE) Urine RBC 2-4 /HPF (0 - 2) Urine WBC 0 /HPF (0 - 2) Urine Squamous Epithelial Cells Occasional /LPF Urine Bacteria Occasional /HPF (NONE) Urine HCG, Qualitative Negative (NEGATIVE) White Blood Count 8.1 K/UL (4.8-10.8) Red Blood Count 3.35 M/UL (4.20-5.40) Hemoglobin 9.6 G/DL (12.0-16.0) Hematocrit 28.7 % (37.0-47.0) Mean Corpuscular Volume 86 FL (80-99) Mean Corpuscular Hemoglobin 28.7 PG (27.0-31.0) Mean Corpuscular Hemoglobin Concent 33.6 G/DL (32.0-36.0) Red Cell Distribution Width 13.5 % (11.6-14.8) Platelet Count 251 K/UL (150-450) Mean Platelet Volume 5.7 FL (6.5-10.1) Neutrophils (%) (Auto) 52.6 % (45.0-75.0) Lymphocytes (%) (Auto) 25.4 % (20.0-45.0) Monocytes (%) (Auto) 17.2 % (1.0-10.0) Eosinophils (%) (Auto) 1.7 % (0.0-3.0) Basophils (%) (Auto) 3.1 % (0.0-2.0) Sodium Level 137 MMOL/L (136-145) Potassium Level 4.4 MMOL/L (3.5-5.1) Chloride Level 106 MMOL/L (98-107) Carbon Dioxide Level 25 MMOL/L (21-32) Anion Gap 6 mmol/L (5-15) Blood Urea Nitrogen 22 mg/dL (7-18) Creatinine 1.6 MG/DL (0.55-1.30) Estimat Glomerular Filtration Rate 36.7 mL/min (>60) Glucose Level 132 MG/DL (74-106) Calcium Level 8.2 MG/DL (8.5-10.1) CT/MRI/US Diagnostic Results CT/MRI/US Diagnostic Results : Imaging Test Ordered: CT abdomen and pelvis no contrast Impression " IMPRESSION: No renal stones, hydronephrosis or perinephric stranding. Diverticulosis without diverticulitis. Intrauterine device appears centrally located. The ovaries are not well evaluated on noncontrast imaging. A small amount of pelvic free fluid is present. ." --Per official radiology report- Please see report for specific details. Last Vital Signs Date Time Temp Pulse Resp B/P (MAP) Pulse Ox O2 Delivery O2 Flow Rate FiO2 12/29/19 14:24 98.8 83 18 137/95 (109) 94 Room Air Status: improved Disposition: HOME, SELF-CARE Condition: Stable Scripts Phenazopyridine Hcl* (PYRIDIUM*) 200 Mg Tablet 200 MG ORAL THREE TIMES A DAY, #9 TAB 0 Refills Prov: Dulce Musa 12/29/19 Acetaminophen* (TYLENOL EXTRA STRENGTH*) 500 Mg Tablet 500 MG ORAL Q6H, #20 TAB Prov: Dulce Musa 12/29/19 Patient Instructions: Abdominal Pain, Adult, [id number], Flank Pain, [id number], Kidney Stones, [id number] Additional Instructions: ~ ~ An emergent medical condition has not been identified based on this patients presentation, exam and any necessary testing/imaging. The patient is determined to be stable for outpatient follow-up and management of symptoms by a primary care provider. Take medications as directed. Follow up with a Primary Care Provider in 3-5 days, even if your symptoms have resolved. Return sooner to ED if new symptoms occur, or current symptoms become worse. - Please note that this Emergency Department Report was dictated using [employer] manager technology software, occasionally this can lead to erroneous entry secondary to interpretation by the dictation equipment. Dulce Musa Dec 29, 2019 15:14
[2019-12-29] MEDS ORDERED: Ketorolac 30mg Inj IV ONE (15:30)
--- NOTE | 2019-12-29 15:39 | NUR ---
ED Nurse Note: pt in radiology
[2019-12-29 15:41] LABS: BASOPHILS % (AUTO) 3.1 % (0.0-2.0); EOSINOPHILS % (AUTO) 1.7 % (0.0-3.0); HEMATOCRIT 28.7 % (37.0-47.0); HEMOGLOBIN 9.6 G/DL (12.0-16.0); LYMPHOCYTES % (AUTO) 25.4 % (20.0-45.0); MEAN CORPUSCULAR VOLUME 86 FL (80-99); MONOCYTES % (AUTO) 17.2 % (1.0-10.0); NEUTROPHILS % (AUTO) 52.6 % (45.0-75.0); PLATELET COUNT 251 K/UL (150-450); RED BLOOD COUNT 3.35 M/UL (4.20-5.40); RED CELL DISTRIBUTION WIDTH 13.5 % (11.6-14.8); WHITE BLOOD COUNT 8.1 K/UL (4.8-10.8)
[2019-12-29 16:30] VITALS: BP 136/81
[2019-12-29] MEDS ORDERED: ACETAMINOPHEN500 MG ORAL (17:09)
[2019-12-29] MEDS ORDERED: PHENAZOPYRIDIN200 MG ORAL (17:09)
[2019-12-29 17:18] VITALS: BP 132/76
--- NOTE | 2019-12-30 06:20 | Diagnostic Imaging Report ---
History: PAIN Exam: CT ABDOMEN + PELVIS Without Contrast Technique more: CTDI is 4.80 mGy and DLP is 248.30 mGy-cm. Technique more: One or more of the following dose reduction techniques were used: automated exposure control, adjustment of the mA and/or kV according to patient size, use of iterative reconstruction technique. Comparison: 05/17/2019 FINDINGS: Mild dependent basilar atelectasis. No renal stones, hydronephrosis or perinephric stranding. The abdominal solid organs, contracted gallbladder and abdominal aorta appear within limits on noncontrast imaging. No bowel dilation or free air. Normal caliber appendix without secondary signs. Diverticulosis without diverticulitis. Intrauterine device appears centrally located. The ovaries are not well evaluated on noncontrast imaging. A small amount of pelvic free fluid is present. The bladder appears within limits. IMPRESSION: No renal stones, hydronephrosis or perinephric stranding. Diverticulosis without diverticulitis. Intrauterine device appears centrally located. The ovaries are not well evaluated on noncontrast imaging. A small amount of pelvic free fluid is present.
== END 2019-12-29 17:18 | disposition home or self-care (01) ==
LOC: EMR 15:23
DX: R10.30 Lower abdominal pain, unspecified (principal); E78.5 Hyperlipidemia, unspecified; I10 Essential (primary) hypertension; Z88.0 Allergy status to penicillin; Z87.440 Personal history of urinary (tract) infections; K57.90 Diverticulosis of intestine, part unspecified, without perforation or abscess without bleeding; Z97.5 Presence of (intrauterine) contraceptive device
CPT/HCPCS: 36415; 74176; 81003; 81025; 85025; 96361; 96374; J1885; J7030; Z7502; 99284

== ENCOUNTER → 2020-05-25 | Emergency (ER) | payer MEDICAID ==
[~2020-05-25] VITALS: Ht 157.5 cm; Wt 59.0 kg
[~2020-05-25] MED LIST changes: +ACETAMINOPHEN500 MG ORAL; +CLEOCIN150 MG ORAL; +IBU800 MG PO; +PHENAZOPYRIDIN200 MG ORAL; +TYLENOL EXTRA500 MG ORAL
[2020-05-25 17:05] VITALS: BP 130/80
--- NOTE | 2020-05-25 17:07 | NUR ---
came to er complaints fever chills and sore throat waiting for md maki
--- NOTE | 2020-05-25 18:10 | NUR ---
CT SCAN COMPLETED WAITING FOR RESULTS
--- NOTE | 2020-05-25 18:13 | Diagnostic Imaging Report ---
EXAM: CT Neck Without Intravenous Contrast CLINICAL HISTORY: MASS TECHNIQUE: Axial computed tomography images of the neck without intravenous contrast. CTDI is 14.6 mGy and DLP is 341.3 mGy-cm. One or more of the following dose reduction techniques were used: automated exposure control, adjustment of the mA and/or kV according to patient size, use of iterative reconstruction technique. COMPARISON: No relevant prior studies available. FINDINGS: Oropharynx: Unremarkable. No significant tonsillar enlargement. Hypopharynx: Unremarkable. Larynx: Unremarkable. Normal epiglottis. Trachea: Unremarkable. Retropharyngeal space: Unremarkable. Submandibular/parotid glands: Unremarkable. Glands are normal in size. Thyroid: Unremarkable. No enlarged or calcified nodules. Bones/joints: No acute fracture. Soft tissues: Unremarkable. Vasculature: No acute findings. Lymph nodes: Unremarkable. No lymphadenopathy. Dental: Dental caries and periapical lucencies. Lung apices: Unremarkable as visualized. IMPRESSION: 1. No acute disease. 2. Dental caries and periapical periodontitis.
--- NOTE | 2020-05-25 18:27 | Emergency Room Report ---
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 Complains of fever and chills, took Tylenol prior to arrival, denies cough and congestion, headache and dizziness at this time reports that the pain is radiating to her head. Denies diarrhea, loss of taste or smell. Denies getting tested for Covid. Denies . Denies any injury. Denies weight loss or weight gain. Denies night sweats. 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 Patient History Past Medical History: see triage record Past Surgical History: none Pertinent Family History: none Last Menstrual Period: 05/03/20 Now: No Immunizations: UTD Reviewed Nursing Documentation: PMH: Agreed; PSxH: Agreed Nursing Documentation-PMH Hx Cardiac Problems: Yes - hyperlipidemia Hx Hypertension: Yes Hx Pacemaker: No Hx Asthma: No Hx COPD: No Hx Diabetes: No Hx Cancer: No Hx Gastrointestinal Problems: Yes - kidney disease Hx Dialysis: No Hx Neurological Problems: No Hx Cerebrovascular Accident: No Hx Seizures: No Review of Systems All Other Systems: negative except mentioned in HPI Physical Exam Vital Signs Date Time Temp Pulse Resp B/P (MAP) Pulse Ox O2 Delivery O2 Flow Rate FiO2 05/25/20 16:50 99.9 98 18 130/80 (97) 97 Room Air Sp02 EP Interpretation: reviewed, normal General Appearance: no apparent distress, alert, GCS 15, non-toxic Head: normocephalic, atraumatic Eyes: bilateral eye normal inspection, bilateral eye PERRL ENT: hearing grossly normal, normal pharynx Neck: full range of motion, thyroid normal, no meningismus, no bony tend, no carotid bruits, other - Swelling noted left anterior cervical Respiratory: no retraction, no accessory muscle use Cardiovascular #1: regular rate, rhythm Cardiovascular #2: 2+ carotid (R), 2+ carotid (L) Gastrointestinal: soft Musculoskeletal: back normal Neurologic: alert, motor strength/tone normal, oriented x3, sensory intact, responsive, speech normal Psychiatric: judgement/insight normal, memory normal, mood/affect normal, no suicidal/homicidal ideation Skin: no rash Lymphatic: adenopathy - Left anterior cervical Medical Decision Making PA Attestation All diagnoses and treatment plans were reviewed and discussed with my supervising physician Dr. 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 Complains of fever and chills, took Tylenol prior to arrival, denies cough and congestion, headache and dizziness at this time reports that the pain is radiating to her head. Denies diarrhea, loss of taste or smell. Denies getting tested for Covid. Denies . Denies any injury. Denies weight loss or weight gain. Denies night sweats. Ddx considered but are not limited to : Cellulitis, strep pharyngitis, peritonsillar abscess, dental abscess,, superficial infection, H&PE are most consistent with: Dental infection, lymphadenopathy ORDERS: CT neck no contrast soft tissue, I could not order CT with contrast patient reported that has abnormal GFR BUN/creatinine, at this time due to patient being stable with stable vital signs no blood work needed as patient is not septic. Clindamycin, Tylenol ED INTERVENTIONS: None required at this time. DISCHARGE: At this time pt. is stable for d/c to home. Will provide printed patient care instructions, and any necessary prescriptions. Care plan and follow up instructions have been discussed with the patient prior to discharge. Patient take medication as directed, follow-up with primary care provider Homer, if worsening symptoms return to the emergency room. Patient appears to be afebrile, no further evaluation, blood work needed. Advised return to the emergency room for any worsening CT/MRI/US Diagnostic Results CT/MRI/US Diagnostic Results : Imaging Test Ordered: CT neck soft tissue no contrast Impression FINDINGS: Oropharynx: Unremarkable. No significant tonsillar enlargement. Hypopharynx: Unremarkable. Larynx: Unremarkable. Normal epiglottis. Trachea: Unremarkable. Retropharyngeal space: Unremarkable. Submandibular/parotid glands: Unremarkable. Glands are normal in size. Thyroid: Unremarkable. No enlarged or calcified nodules. Bones/joints: No acute fracture. Soft tissues: Unremarkable. Vasculature: No acute findings. Lymph nodes: Unremarkable. No lymphadenopathy. Dental: Dental caries and periapical lucencies. Lung apices: Unremarkable as visualized. IMPRESSION: 1. No acute disease. 2. Dental caries and periapical periodontitis. Last Vital Signs Date Time Temp Pulse Resp B/P (MAP) Pulse Ox O2 Delivery O2 Flow Rate FiO2 05/25/20 17:05 98 18 Room Air 05/25/20 17:05 99.9 130/80 97 Disposition: HOME, SELF-CARE Condition: Stable Scripts Acetaminophen* (TYLENOL EXTRA STRENGTH*) 500 Mg Tablet 1000 MG ORAL Q8H PRN for Prn Headache/Temp > 101, #30 TAB 0 Refills Prov: Ida Carvajal 05/25/20 Clindamycin HCl (Clindamycin HCl) 300 Mg Capsule 150 MG ORAL EVERY 6 HOURS for 7 Days, #28 CAP Prov: Ida Carvajal 05/25/20 Referrals: [facility],REFERR[facility] (PCP) Patient Instructions: Dental Abscess, Lymphadenopathy Additional Instructions: Take medication as directed, follow-up with your dentist, if worsening symptoms return to the emergency room Ida Carvajal May 25, 2020 18:27
== END | disposition home or self-care (01) ==
LOC: EMR 16:42
DX: K04.7 Periapical abscess without sinus (principal); R59.1 Generalized enlarged lymph nodes; I12.9 Hypertensive chronic kidney disease with stage 1 through stage 4 chronic kidney disease, or unspecified chronic kidney disease; N18.9 Chronic kidney disease, unspecified; Z88.0 Allergy status to penicillin; E78.5 Hyperlipidemia, unspecified; K05.30 Chronic periodontitis, unspecified
CPT/HCPCS: 70490; 81025; Z7502; 99284